=== PATIENT | male | born 1960 | race Caucasian/White ===

== ENCOUNTER → 2019-05-21 12:55 | Outpatient (BNVA) | payer SELFPAY | PROVIDERS: Family Provider Physician Assistant Medical; PCP Physician Assistant Medical; Visit Provider Specialist | DX: F17.210 Nicotine dependence, cigarettes, uncomplicated (principal); F12.20 Cannabis dependence, uncomplicated; Z86.73 Personal history of transient ischemic attack (TIA), and cerebral infarction without residual deficits | CPT/HCPCS: 99214 ==

== ENCOUNTER → 2021-02-08 15:45 | Outpatient (BNVA) | payer OTHER, SELFPAY | PROVIDERS: Family Provider Physician Assistant Medical; PCP Physician Assistant Medical; Visit Provider Nurse Practitioner | DX: Z20.822 Contact with and (suspected) exposure to COVID-19 (principal) | CPT/HCPCS: 87635 ==

== ENCOUNTER → 2022-06-01 14:07 | Outpatient (BNVA) | payer MEDICAID, SELFPAY | PROVIDERS: Family Provider Physician Assistant Medical; PCP Physician Assistant Medical; Visit Provider Podiatrist Foot & Ankle Surgery | DX: I73.9 Peripheral vascular disease, unspecified (principal); B35.1 Tinea unguium; Z87.39 Personal history of other diseases of the musculoskeletal system and connective tissue | CPT/HCPCS: 11721; 73630; 99204 ==

== ENCOUNTER 2022-11-22 13:27 | Oncology outpatient (recurring) (ONCR) | payer MEDICARE, MEDICAID, SELFPAY ==
[2022-11-22 15:10] LABS: Reticulocyte % 1.3 % (0.5-2.0)
[2022-11-22 15:20] VITALS: BP 154/100; PULSE 73; RESP 18; TEMP 36.4; O2SAT 96
[2022-11-22 15:26] LABS: Ferritin 63 ng/mL (30-400); Iron 105 ug/dL (59-158)
[2022-11-25 14:24] LABS: Erythropoietin 3.4 mIU/mL (2.6-18.5)
== END 2022-11-22 23:59 | disposition home or self-care (01) ==
PROVIDERS: Internal Medicine Medical Oncology; PCP Physician Assistant Medical; Visit Provider Internal Medicine Medical Oncology
DX: D75.1 Secondary polycythemia (principal)
CPT/HCPCS: 82668; 82728; 83540; 85045; 99204

== ENCOUNTER 2022-12-20 12:00 | Oncology outpatient (recurring) (ONCR) | payer MEDICARE, SELFPAY ==
[2022-11-29 11:50] VITALS: BP 122/78; PULSE 88; RESP 18; TEMP 36.4; O2SAT 98
[2022-11-29 12:25] VITALS: BP 163/83; PULSE 83; RESP 18; TEMP 35.9; O2SAT 97
[2022-12-06 13:14] VITALS: BP 134/84; PULSE 72; RESP 18; TEMP 37; O2SAT 96
[2022-12-06 13:25] LABS: Basophils # 0.1 10^3/uL (0.0-0.1); Basophils % 0.7 %; Eosinophils % 0.5 %; Hematocrit 57.1 % (42.0-52.0); Hemoglobin 19.5 g/dL (11.7-16.6); Lymphocytes # 1.8 10^3/uL (0.8-4.8); Mean Corpuscular HGB Conc 34.2 g/dL (30.0-36.0); Mean Corpuscular Hemoglobin 33.2 pg (28.0-34.0); Mean Corpuscular Volume 97.3 fl (80-94); Mean Platelet Volume 8.5 fL (7.4-10.4); Monocytes # 0.7 10^3/uL (0.2-0.9); Monocytes % 8.1 %; Neutrophils # 6.23 10^3/uL (1.8-7.7); Neutrophils % 70.5 %; Nucleated Red Blood Cells % 0 %; Platelet Count 244 10^3/cmm (130-400); Red Blood Count 5.87 10^6/uL (4.1-5.3); Red Cell Distribution Width 13.2 % (12.1-15.1); White Blood Count 8.8 10^3/uL (4.0-10.0)
[2022-12-06 13:45] VITALS: BP 133/88; PULSE 86; RESP 18; TEMP 36.4; O2SAT 99
[2022-12-13 13:03] VITALS: BP 176/84; PULSE 82; RESP 18; TEMP 36.9; O2SAT 96
[2022-12-13 13:16] LABS: Basophils # 0.1 10^3/uL (0.0-0.1); Basophils % 0.7 %; Eosinophils # 0.1 10^3/uL (0.0-0.8); Eosinophils % 0.8 %; Hematocrit 54.7 % (42.0-52.0); Hemoglobin 18.4 g/dL (11.7-16.6); Lymphocytes # 2.4 10^3/uL (0.8-4.8); Lymphocytes % 32.7 %; Mean Corpuscular HGB Conc 33.6 g/dL (30.0-36.0); Mean Corpuscular Hemoglobin 32.2 pg (28.0-34.0); Mean Corpuscular Volume 95.8 fl (80-94); Mean Platelet Volume 8.1 fL (7.4-10.4); Monocytes # 0.6 10^3/uL (0.2-0.9); Monocytes % 8.3 %; Neutrophils # 4.26 10^3/uL (1.8-7.7); Neutrophils % 57.2 %; Nucleated Red Blood Cells % 0 %; Platelet Count 298 10^3/cmm (130-400); Red Blood Count 5.71 10^6/uL (4.1-5.3); Red Cell Distribution Width 13.2 % (12.1-15.1); White Blood Count 7.4 10^3/uL (4.0-10.0)
[2022-12-13 15:30] VITALS: BP 121/65; PULSE 74; RESP 18; TEMP 36.6; O2SAT 98
[2022-12-20 12:47] VITALS: BP 137/78; PULSE 73; RESP 18; TEMP 36.6; O2SAT 96
[2022-12-20 13:05] LABS: Basophils # 0.1 10^3/uL (0.0-0.1); Basophils % 1.3 %; Eosinophils # 0.1 10^3/uL (0.0-0.8); Eosinophils % 1.5 %; Hematocrit 49.2 % (37-53); Lymphocytes % 36.3 %; Mean Corpuscular HGB Conc 33.3 g/dL (30-55); Mean Corpuscular Volume 96.1 fl (82-101); Mean Platelet Volume 8.4 fL (7.4-10.4); Monocytes # 0.6 10^3/uL (0.2-0.9); Monocytes % 10.7 %; Neutrophils # 2.69 10^3/uL (1.8-7.7); Neutrophils % 49.8 %; Nucleated Red Blood Cells % 0 %; Platelet Count 279 10^3/cmm (157-399); Red Blood Count 5.12 10^6/uL (3.85-5.65); Red Cell Distribution Width 13.1 % (12.1-15.1)
[2022-12-20 14:40] VITALS: BP 121/74; PULSE 94; RESP 18; TEMP 36.1; O2SAT 97
== END 2022-12-29 23:59 | disposition home or self-care (01) ==
PROVIDERS: Internal Medicine Medical Oncology; PCP Registered Nurse; Visit Provider Internal Medicine Medical Oncology
DX: D75.1 Secondary polycythemia (principal); R53.83 Other fatigue; R06.02 Shortness of breath; R40.0 Somnolence; F17.210 Nicotine dependence, cigarettes, uncomplicated
CPT/HCPCS: 36415; 85025; 99195; 99213

== ENCOUNTER → 2023-01-17 15:17 | Outpatient (BNVA) | payer MEDICARE, SELFPAY | PROVIDERS: PCP Registered Nurse; Visit Provider Dermatology | DX: L57.0 Actinic keratosis (principal); L81.4 Other melanin hyperpigmentation; L57.8 Other skin changes due to chronic exposure to nonionizing radiation; L82.1 Other seborrheic keratosis; L82.0 Inflamed seborrheic keratosis; L53.8 Other specified erythematous conditions; D48.5 Neoplasm of uncertain behavior of skin | CPT/HCPCS: 11102; 17000; 17110; 99203 ==

== ENCOUNTER 2023-01-18 11:55 | Oncology outpatient (recurring) (ONCR) | payer MEDICARE, SELFPAY ==
[2023-01-18 12:27] VITALS: BP 149/89; PULSE 72; RESP 16; TEMP 37; O2SAT 95
[2023-01-18 12:39] LABS: Basophils # 0.1 10^3/uL (0.0-0.1); Basophils % 1.1 %; Eosinophils # 0.1 10^3/uL (0.0-0.8); Eosinophils % 1.8 %; Hematocrit 51.5 % (37-53); Lymphocytes # 2.4 10^3/uL (0.8-4.8); Lymphocytes % 43.6 %; Mean Corpuscular HGB Conc 32.2 g/dL (30-55); Mean Corpuscular Hemoglobin 29.7 pg (27-33); Mean Corpuscular Volume 92.3 fl (82-101); Mean Platelet Volume 8.3 fL (7.4-10.4); Monocytes # 0.7 10^3/uL (0.2-0.9); Monocytes % 11.6 %; Neutrophils # 2.34 10^3/uL (1.8-7.7); Neutrophils % 41.7 %; Nucleated Red Blood Cells % 0 %; Platelet Count 310 10^3/cmm (157-399); Red Blood Count 5.58 10^6/uL (3.85-5.65); Red Cell Distribution Width 12.8 % (12.1-15.1)
== END 2023-01-28 23:59 | disposition home or self-care (01) ==
PROVIDERS: Internal Medicine Medical Oncology; PCP Registered Nurse; Visit Provider Internal Medicine Medical Oncology
DX: D75.1 Secondary polycythemia (principal); R09.02 Hypoxemia
CPT/HCPCS: 36415; 85025; 99213

== ENCOUNTER → 2023-02-06 08:29 | Outpatient (BNVA) | payer MEDICARE, SELFPAY | PROVIDERS: PCP Registered Nurse; Visit Provider Dermatology | DX: C44.629 Squamous cell carcinoma of skin of left upper limb, including shoulder (principal) | CPT/HCPCS: 11603; 12032; 13132; 17311 ==

== ENCOUNTER 2024-06-02 20:52 | Observation (INO) | payer MEDICARE, SELFPAY ==
[2024-06-02] VITALS (10 sets, daily range): BP systolic 129–154; BP diastolic 68–81; PULSE 58–72; RESP 16–30; TEMP 36.7; O2SAT 93–95; BMI 18.6
--- NOTE | 2024-06-02 21:05 | XRR_ITS ---
PROCEDURE INFORMATION: Exam: XR Chest Exam date and time: 06/02/2024 9:34 PM Age: 63 years old Clinical indication: Possible CVA. ; Additional info: Weakness TECHNIQUE: Imaging protocol: Radiologic exam of the chest. Views: 1 view. COMPARISON: CT angio headneck* [id number] 06/02/2024 9:15 PM FINDINGS: Lungs: Unremarkable. No consolidation. Pleural spaces: Unremarkable. No pleural effusion. No pneumothorax. Heart/Mediastinum: Unremarkable. No cardiomegaly. Bones/joints: Unremarkable. XR/XR chest 1V portable [id number] IMPRESSION: No acute findings.
--- NOTE | 2024-06-02 21:05 | CTR_ITS ---
PROCEDURE INFORMATION: Exam: CTA Head With Contrast, Arteriography Exam date and time: 06/02/2024 9:15 PM Age: 63 years old Clinical indication: Stroke-like symptoms; Lt upper extremity weakness; Additional info: Left ue weakness TECHNIQUE: Imaging protocol: Computed tomographic angiography of the head with contrast. Exam focused on the arteries. 3D rendering (Not supervised by radiologist): MIP and/or 3D reconstructed images were created by the technologist. Radiation optimization: All CT scans at this facility use at least one of these dose optimization techniques: automated exposure control; mA and/or kV adjustment per patient size (includes targeted exams where dose is matched to clinical indication); or iterative reconstruction. Contrast material: OMNI 350; Contrast volume: 100 ml; Contrast route: INTRAVENOUS (IV); COMPARISON: CT head thrombolytic [id number] 06/02/2024 9:11 PM RADIATION DOSE METRICS: Total DLP (mGy-cm): 394.06 FINDINGS: ANTERIOR CIRCULATION: Right internal carotid artery: Intracranial segment is patent with no significant stenosis. No aneurysm. Right middle cerebral artery: Chronically occluded M1 segment of right middle cerebral artery with revascularization from collateralized vasculature. Right anterior cerebral artery: No occlusion or significant stenosis. No aneurysm. Left internal carotid artery: Intracranial segment is patent with no significant stenosis. No aneurysm. Left middle cerebral artery: No occlusion or significant stenosis. No aneurysm. Left anterior cerebral artery: No occlusion or significant stenosis. No aneurysm. POSTERIOR CIRCULATION: Right vertebral artery: No occlusion or significant stenosis. No aneurysm. 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 Basilar artery: No occlusion or significant stenosis. No aneurysm. Right posterior cerebral artery: No occlusion or significant stenosis. No aneurysm. Left posterior cerebral artery: No occlusion or significant stenosis. No aneurysm. Brain: No definite mass, mass effect, or midline shift. Cerebral ventricles: No ventriculomegaly. Bones/joints: Unremarkable. No acute fracture. Soft tissues: Unremarkable. PROCEDURE INFORMATION: Exam: CTA Neck With Contrast Exam date and time: 06/02/2024 9:15 PM Age: 63 years old Clinical indication: Stroke-like symptoms; Lt upper extremity weakness; Additional info: Left ue weakness TECHNIQUE: Imaging protocol: Computed tomographic angiography of the neck with contrast. Exam focused on the cervical segments of the vasculature. 3D rendering (Not supervised by radiologist): MIP and/or 3D reconstructed images were created by the technologist. Radiation optimization: All CT scans at this facility use at least one of these dose optimization techniques: automated exposure control; mA and/or kV adjustment per patient size (includes targeted exams where dose is matched to clinical indication); or iterative reconstruction. Contrast material: OMNI 350; Contrast volume: 100 ml; Contrast route: INTRAVENOUS (IV); COMPARISON: MR angio neck w con* [id number] 01/23/2019 10:23 AM RADIATION DOSE METRICS: Total DLP (mGy-cm): 394.06 FINDINGS: Right common carotid artery: No stenosis. No dissection or occlusion. Right internal carotid artery: Mild stenosis at the origin. No dissection or occlusion. Right external carotid artery: No occlusion or stenosis of the origin. Left common carotid artery: No stenosis. No dissection or occlusion. Left internal carotid artery: Mild stenosis at the origin. No dissection or occlusion. Left external carotid artery: No occlusion or stenosis of the origin. Right vertebral artery: No stenosis. No dissection or occlusion. Left vertebral artery: Chronically occluded distal aspect of the left vertebral artery in the neck with collateralized vasculature. Soft tissues: Normal. No significant soft tissue swelling. Bones/joints: No acute fracture. CT/CT angio headneck* [id number] IMPRESSION: 1. No acute large vessel occlusion. 2. Chronically occluded M1 segment of the right MCA and distal portion of the left vertebral artery with collateralized vasculature. IMPRESSION: 1. No acute large vessel occlusion. 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 2. Mild stenosis at the origins of the internal carotid arteries. REFERENCES: NASCET CRITERIA. The degree of stenosis in the cervical segment of the internal carotid artery is based on NASCET criteria. Normal is no stenosis. Mild is less than 50% stenosis. Moderate is 50-69% stenosis. Severe is 70% to 99% stenosis. Total occlusion is no detectable patent lumen.
--- NOTE | 2024-06-02 21:06 | CTR_ITS ---
PROCEDURE INFORMATION: Exam: CT Head Without Contrast Exam date and time: 06/02/2024 9:11 PM Age: 63 years old Clinical indication: Stroke-like symptoms; Lt upper extremity weakness; Additional info: Sudden onset of lue weakness. Lkwt of 1930 hours. History of prior RT sided CVA. TECHNIQUE: Imaging protocol: Computed tomography of the head without contrast. Radiation optimization: All CT scans at this facility use at least one of these dose optimization techniques: automated exposure control; mA and/or kV adjustment per patient size (includes targeted exams where dose is matched to clinical indication); or iterative reconstruction. Other technique: STROKE PROTOCOL was implemented. COMPARISON: MR angio head wo con [id number] 01/23/2019 9:29 AM RADIATION DOSE METRICS: Total DLP (mGy-cm): 1014.56 FINDINGS: Brain: No hemorrhage. No edema. Broad region of encephalomalacia in the right cerebral hemisphere. Focal area of encephalomalacia from old infarct in the left parietal lobe. Moderate diffuse cerebral atrophy. No mass effect. Cerebral ventricles: No ventriculomegaly. Paranasal sinuses: Visualized sinuses are unremarkable. No fluid levels. Mastoid air cells: Visualized mastoid air cells are well aerated. Bones: Unremarkable. No acute fracture. Soft tissues: Unremarkable. CT/CT head thrombolytic [id number] IMPRESSION: No acute intracranial abnormality. ASSESSMENT: ASPECTS (Tracie Stroke Program Early CT Score) is 10.
[2024-06-02 21:19] LABS: Basophils % 0.4 %; Eosinophils % 0.4 %; Hematocrit 45.3 % (37-53); Lymphocytes % 44.7 %; Mean Corpuscular HGB Conc 34.4 g/dL (30-55); Mean Corpuscular Volume 92.8 fl (82-101); Mean Platelet Volume 9.4 fL (7.4-10.4); Monocytes # 0.9 10^3/uL (0.2-0.9); Monocytes % 13.8 %; Neutrophils # 2.69 10^3/uL (1.8-7.7); Neutrophils % 40.4 %; Nucleated Red Blood Cells % 0 %; Platelet Count 150 10^3/cmm (157-399); Red Blood Count 4.88 10^6/uL (3.85-5.65); Red Cell Distribution Width 12.8 % (12.1-15.1); White Blood Count 6.67 10^3/uL (3.29-11.43)
[2024-06-02] MEDS: iohexol 350 mg/mL 500 mL Btl (per mL) IV (21:24)
--- NOTE | 2024-06-02 21:25 | W.ED.WEAKNES ---
HPI - Weakness General: Chief complaint: Weakness Stated complaint: Possible Stroke Time Seen by Provider: 06/02/24 21:05 History of Present Illness: 63-year-old male gentleman with a history of 2 prior strokes. He is on Plavix for these. He has been ill with the flu this past few days, but otherwise has had no neurological complaints. At 7:30 PM this evening, he began to get weak in his left upper extremity more than his left lower extremity. He has a facial droop on the left side. These are his only symptoms. He has no new vision problems, although he does have vision problems from his previous stroke, no language problems, works speech problems. His extremities feel a bit numb on the left side upper and lower. He does not have a headache. He is not dizzy. [facility] PFSH: Medical History Hypertension CVA (cerebrovascular accident) History of sciatica Polycythemia secondary to hypoxia History of gout Family History Father Cancer Lung cancer Other Diabetes Hyperlipidemia Hypertension Stroke Denies family history of CAD (coronary artery disease) Clotting disorder Dementia Psychiatric illness Chronic kidney disease (CKD) Suicide Anesthesia complication Bleeding disorder Lung disease Social History Smoking and tobacco/nicotine status: current every day tobacco/nicotine user cigarettes Packs smoked per day: 0.75 Years cigarettes smoked: 40 Alcohol intake: current Alcohol intake frequency: 0-2 Drinks per Day Alcohol type: beer Substance/Drug Use: current Substance/Drug use frequency: daily Physical Exam Const: COMMON NORMALS: no acute distress GENERAL APPEARANCE: cooperative; not ill appearing and not frail appearing HENMT: COMMON NORMALS: normocephalic, atraumatic and Normal external nose present HEAD & SCALP: normocephalic and atraumatic FACE & SINUS: normal facial exam and face symmetric NOSE: Normal external nose present Eye: COMMON NORMALS: Equal, round and reactive pupils present and EOMs intact bilaterally PUPIL: Yes Equal, round and reactive pupils present Neck/C-Spine: GENERAL: Yes trachea midline Chest: CHEST: Yes Symmetrical chest wall rise Resp: COMMON NORMALS: normal respiratory effort, No retractions, No use of accessory muscles and clear to auscultation bilaterally AUSCULTATION: clear to auscultation bilaterally Cardio: COMMON NORMALS: regular rate and regular rhythm RATE: regular rate RHYTHM: regular rhythm GI: COMMON NORMALS: Normal to inspection, nondistended, normoactive bowel sounds present Extremity: COMMON NORMALS: no pedal edema Neuro: MIRNA COMA SCALE: document GCS findings Mirna coma scale eye opening: Spontaneous [place] coma scale verbal response: Orientated [place] coma scale motor response: Obey commands Mirna coma scale total score: 15 SENSORY EXAM: Yes extremities (intact) Psych: COMMON NORMALS: speech normal SPEECH: Yes normal speech Skin: COMMON NORMALS: no rashes or lesions noted GENERAL SKIN EXAM: no rashes or lesions noted Course Vital Signs: Vital signs: Vital Signs Temperature 98.1 F 06/02/24 20:53 Pulse Rate 64 06/02/24 23:31 Respiratory Rate 22 H 06/02/24 23:31 Blood Pressure 129/68 06/02/24 23:31 Pulse Oximetry 95 06/02/24 20:53 Oxygen Delivery Me thod Room Air 06/02/24 20:53 MDM - Weakness Medical Decision Making This patient has an NIH scale of 4. His last stroke was in 2017 he tells me. His platelet count is 150. No recent trauma or surgery. He takes Plavix but no anticoagulants. He is within the treatment window for thrombolytics. Obviously CT head was negative for hemorrhage. CTA showed a chronically occluded MCA on the right, and a left vertebral artery both with collateralized vasculature according to radiology. I consulted neurology at [facility] in [place], who is covering our stroke team. They agree the patient is a good candidate for thrombolytics. He was given TNKase. No worsening of symptoms. His vitals are remained stable. Chest x-ray is negative. He will go to the ICU. Hospitalist is aware and will see the patient. Lab Data 06/02/24 21:10 06/02/24 21:10 Radiology Impressions Chest X-Ray 06/02/24 21:05 IMPRESSION: No acute findings. Head/Neck CTA 06/02/24 21:05 IMPRESSION: 1. No acute large vessel occlusion. 2. Chronically occluded M1 segment of the right MCA and distal portion of the left vertebral artery with collateralized vasculature. IMPRESSION: 1. No acute large vessel occlusion. 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 2. Mild stenosis at the origins of the internal carotid arteries. REFERENCES: NASCET CRITERIA. The degree of stenosis in the cervical segment of the internal carotid artery is based on NASCET criteria. Normal is no stenosis. Mild is less than 50% stenosis. Moderate is 50-69% stenosis. Severe is 70% to 99% stenosis. Total occlusion is no detectable patent lumen. ADDENDUM: 06/02/242150 Findings were discussed with YSABEL MALONEY at 06/02/2024 9:49 PM HANDLE LATHE OPERATOR. Head CT 06/02/24 21:06 IMPRESSION: No acute intracranial abnormality. ASSESSMENT: ASPECTS (Tracie Stroke Program Early CT Score) is 10. ADDENDUM: 06/02/242132 Findings were discussed with YSABEL MALONEY at 06/02/2024 9:31 PM HANDLE LATHE OPERATOR. Laboratory Results WBC 6.67 10^3/uL (3.29-11.43) 06/02/24 21:10 RBC 4.88 10^6/uL (3.85-5.65) 06/02/24 21:10 Hgb 15.60 g/dL (11.27-16.99) 06/02/24 21:10 Hct 45.3 % (37-53) 06/02/24 21:10 MCV 92.8 fl (82-101) 06/02/24 21:10 MCH 32.0 pg (27-33) 06/02/24 21:10 MCHC 34.4 g/dL (30-55) 06/02/24 21:10 RDW 12.8 % (12.1-15.1) 06/02/24 21:10 Plt Count 150 10^3/cmm (157-399) L 06/02/24 21:10 MPV 9.4 fL (7.4-10.4) 06/02/24 21:10 Neut % (Auto) 40.4 % 06/02/24 21:10 Lymph % (Auto) 44.7 % 06/02/24 21:10 Woodruff % (Auto) 13.8 % 06/02/24 21:10 Eos % (Auto) 0.4 % 06/02/24 21:10 Baso % (Auto) 0.4 % 06/02/24 21:10 Neut # (Auto) 2.69 10^3/uL (1.8-7.7) 06/02/24 21:10 Lymph # (Auto) 3.0 10^3/uL (0.8-4.8) 06/02/24 21:10 Woodruff # (Auto) 0.9 10^3/uL (0.2-0.9) 06/02/24 21:10 Eos # (Auto) 0.0 10^3/uL (0.0-0.8) 06/02/24 21:10 Baso # (Auto) 0.0 10^3/uL (0.0-0.1) 06/02/24 21:10 Nucleated RBC % (auto) 0 % 06/02/24 21:10 Nucleated RBCs # 0.0 /100WBC 06/02/24 21:10 PT 11.80 SECONDS (12.1-14.9) L 06/02/24 21:10 INR 0.81 (0.8-1.2) 06/02/24 21:10 APTT 28.6 SECONDS (23.9-36.7) 06/02/24 21:10 Sodium 135 mmol/L (136-145) L 06/02/24 21:10 Potassium 4.0 mmol/L (3.5-5.1) 06/02/24 21:10 Chloride 97 mmol/L (98-107) L 06/02/24 21:10 Carbon Dioxide 27 mmol/L (22-29) 06/02/24 21:10 Anion Gap 15.0 (5-19) 06/02/24 21:10 BUN 8 mg/dL (8-23) 06/02/24 21:10 Creatinine 0.7 mg/dL (0.7-1.2) 06/02/24 21:10 GFR Calculation 114.3 mL/min (90-130) 06/02/24 21:10 Glucose 89 mg/dL (65-115) 06/02/24 21:10 Estimat Average Glucose 105 06/02/24 21:10 Hemoglobin A1c 5.3 % (4.0-6.0) 06/02/24 21:10 Calculated Osmolality 278 mOsm/kg (285-295) L 06/02/24 21:10 Calcium 9.0 mg/dL (8.5-10.5) 06/02/24 21:10 Total Bilirubin 0.2 mg/dL (0.15-1.2) 06/02/24 21:10 AST 36 U/L (0-40) 06/02/24 21:10 ALT 25 U/L (0-41) 06/02/24 21:10 Alkaline Phosphatase 48 U/L (40-130) 06/02/24 21:10 Total Protein 6.2 g/dL (6.6-8.7) L 06/02/24 21:10 Albumin 3.8 g/dL (3.5-5.2) 06/02/24 21:10 Globulin 2.4 g/dL (1.3-4.6) 06/02/24 21:10 Vitamin B12 539 pg/mL (232-1245) 06/02/24 21:10 Urine Color Yellow (Yellow) 06/02/24 22:10 Urine Appearance Clear (CLEAR) 06/02/24 22:10 Urine pH 6.5 (5-7) 06/02/24 22:10 Ur Specific Donal[place] 1.011 (1.005-1.030) 06/02/24 22:10 Urine Protein Negative (Negative) 06/02/24 22:10 Urine Glucose (UA) Negative (Normal) 06/02/24 22:10 Urine Ketones Negative (Negative) 06/02/24 22:10 Urine Blood Negative (Negative) 06/02/24 22:10 Urine Nitrate Negative (Negative) 06/02/24 22:10 Urine Bilirubin Negative (Negative) 06/02/24 22:10 Urine Urobilinogen 0.2 mg/dL (Negative) 06/02/24 22:10 Ur Leukocyte Esterase Negative (Negative) 06/02/24 22:10 Urine RBC 0-2 /hpf (0-2) 06/02/24 22:10 Urine WBC 0-5 /hpf (0-5) 06/02/24 22:10 Ur Squamous Epith Cells 0-5 /hpf (0-5) 06/02/24 22:10 Amorphous Sediment Not Reportable 06/02/24 22:10 Urine Bacteria None seen /hpf (NONE) 06/02/24 22:10 Hyaline Casts 0-4 /lpf H 06/02/24 22:10 Urine Opiates Screen Negative ng/mL (Negative) 06/02/24 22:10 Ur Barbiturates Screen Negative ng/mL (Negative) 06/02/24 22:10 Ur Phencyclidine Scrn Negative ng/mL (Negative) 06/02/24 22:10 Ur Amphetamines Screen Negative ng/mL (Negative) 06/02/24 22:10 U Benzodiazepines Scrn Negative ng/mL (Negative) 06/02/24 22:10 Urine Cocaine Screen Negative ng/mL (Negative) 06/02/24 22:10 U Marijuana (THC) Screen Negative ng/mL (Negative) 06/02/24 22:10 Ethyl Alcohol 40 mg/dL (0-10) H 06/02/24 21:10 All radiology interpretation(s) finalized by discharge Critical Care Time Critical Care Time: Critical Care Time: Yes Total Critical Care Time: 40 Attestation: This case had a high probability of a clinically significant, sudden, or life threatening deterioration of this patient's condition which required my full and direct attention, intervention and personal management. Time is independent of any procedures performed Discharge Plan Discharge Patient Disposition: Placed in Observation Clinical Impression: Acute CVA (cerebrovascular accident) Condition: Stable Prescriptions: No Action losartan 100 mg tablet 100 mg PO QDAY amlodipine 10 mg tablet 10 mg PO QDAY clopidogrel [Plavix] 75 mg tablet 75 mg PO QDAY Qty: 30 5RF tizanidine 2 mg capsule See Rx Instructions PO Q8H PRN Rx Instructions: dosage unknown orally every 8 hours PRN; trazodone 50 mg tablet 25 mg PO BEDTIME allopurinol 100 mg tablet 100 mg PO DAILY lisinopril 5 mg tablet 5 mg PO DAILY Qty: 30 0RF indomethacin 25 mg capsule 25 mg PO BID Qty: 20 0RF Rx Instructions: administer with food or milk Referrals: Maria Teresa Banks [Primary Care Provider] - Coding Level of Care Code ED Forensic Anthropologist for g Fwd Related Data Home Medications Medication Instructions Recorded Confirmed amlodipine 10 mg tablet 10 mg PO QDAY 05/21/19 01/18/23 losartan 100 mg tablet 100 mg PO QDAY 05/21/19 01/18/23 tizanidine 2 mg capsule See Rx Instructions PO Q8H PRN 12/20/22 01/18/23 allopurinol 100 mg tablet 100 mg PO DAILY 01/18/23 01/18/23 trazodone 50 mg tablet 25 mg PO BEDTIME 01/18/23 01/18/23 Previous Rx's Medication Instructions Recorded lisinopril 5 mg tablet 5 mg PO DAILY #30 tabs 05/15/19 clopidogrel 75 mg tablet (Plavix) 75 mg PO QDAY #30 tabs 05/21/19 indomethacin 25 mg capsule 25 mg PO BID #20 caps 06/28/22 Allergies Allergy/AdvReac Type Severity Reaction Status Date / Time Sulfa (Sulfonamide Allergy Mild hives Verified 06/02/24 21:00 Antibiotics) NIH stroke score NIHSS Level Of Consciousness - 1a: 0 Level Of Consciousness Questions - 1b: Both Correct Level Of Consciousness Commands - 1c: Both Correct Best Gaze - 2: Normal Visual Cooper - 3: No Visual Loss Facial Palsy - 4: Minor Paralysis Motor Arm Right - 5: No Drift Motor Arm Left - 5: Drift Motor Leg Right - 6: No Drift Motor Leg Left - 6: Drift Limb Ataxia - 7: Present In One Limb Sensory - 8: Normal Best Language - 9: No Aphasia Dysarthia - 10: Normal Extinction And Inattention - 11: 0 Score Total Score: 4
[2024-06-02 21:30] LABS: INR 0.81 (0.8-1.2)
[2024-06-02 21:31] LABS: Partial Thromboplastin Time 28.6 SECONDS (23.9-36.7)
[2024-06-02 21:34] LABS: Alanine Aminotransferase 25 U/L (0-41); Albumin Level 3.8 g/dL (3.5-5.2); Alcohol Level 40 mg/dL (0-10); Alkaline Phosphatase 48 U/L (40-130); Aspartate Amino Transferase 36 U/L (0-40); Blood Urea Nitrogen 8 mg/dL (8-23); Carbon Dioxide 27 mmol/L (22-29); Chloride 97 mmol/L (98-107); Creatinine Clr Calc Pharmacy 88.4511; Globulin 2.4 g/dL (1.3-4.6); Glomerular Filtration Rate 114.3 mL/min (90-130); Glucose 89 mg/dL (65-115); Osmolality Calculated 278 mOsm/kg (285-295); Slide Review Slide Review Perform; Sodium 135 mmol/L (136-145); Total Bilirubin 0.2 mg/dL (0.15-1.2); Total Protein 6.2 g/dL (6.6-8.7)
[2024-06-02] MEDS: tenecteplase 50mg Kit (STROKE) 16 MG IVP (21:54)
--- NOTE | 2024-06-02 22:07 | ECG_ITS ---
[facility]24[facility]02 Pat Name: Yobany Childs Department: Room: Gender: Male Interface Designer: : [id number] Requested By: Clarence Cuevas Order Number: [id number] Michelet MD: Gianfranco Blankenship M.D. Measurements Intervals Masterson Rate: 64 P: 85 ID: [id number] QRS: 87 QRSD: 85 T: 87 QT: 394 QTc: 409 Interpretive Statements SINUS RHYTHM No previous ECG available for comparison Electronically Signed On 06-06-2024 22:10:00 [employer] by Gianfranco Blankenship M.D. [email or web address] [id number]
--- NOTE | 2024-06-02 23:06 | P.HP_ITS ---
Providers/Chief Complaint 2 Primary Care Provider: Maria Teresa Banks Chief Complaint: Possible Stroke History of Present Illness Yobany Childs is a 63 year old male with history of previous CVA, in 2017 was his last CVA, active smoker, hypertension, dyslipidemia, presented with chief complaint of slurred speech and left-sided arm and leg weakness started at 7:30 PM. Code stroke was called, on arrival patient was evaluated by teleneurologist from [facility]. Patient was given TNKase, patient started experiencing improvement of left arm and leg weakness. At the time of my evaluation his NIH score is 0. He is awake and alert with stable hemodynamics. Patient is stating that he was prescribed oxygen in the past however secondary to insurance lapse he has lost access to oxygen. He smokes 1 pack/day. Compliant with his medications. Patient is stating that he just had supper and he was smoking when he start experiencing slurring of speech and left-sided weakness. He is a retired michael. No chest pain nausea vomiting diarrhea or recent fever. Patient is stating that he is recovering from influenza A. Review of Systems 2 Const: Denies: fever(s) Eyes: Denies: change in vision ENMT: Denies: throat pain Card: Denies: chest pain Resp: Denies: dyspnea GI: Denies: abdominal pain : Denies: flank pain Skin/Breast: Denies: rash Neuro: Reports: headache(s), weakness in extremities and Slurred speech present Medications/Allergies Home Medications Medication Instructions Recorded Confirmed Last Taken Type lisinopril 5 mg tablet 5 mg PO DAILY #30 tabs 05/15/19 01/18/23 Unknown Rx amlodipine 10 mg tablet 10 mg PO QDAY 05/21/19 01/18/23 Unknown History clopidogrel 75 mg tablet (Plavix) 75 mg PO QDAY #30 tabs 05/21/19 01/18/23 Unknown Rx losartan 100 mg tablet 100 mg PO QDAY 05/21/19 01/18/23 Unknown History indomethacin 25 mg capsule 25 mg PO BID #20 caps 06/28/22 01/18/23 Unknown Rx tizanidine 2 mg capsule See Rx Instructions PO Q8H PRN 12/20/22 01/18/23 Unknown History allopurinol 100 mg tablet 100 mg PO DAILY 01/18/23 01/18/23 Unknown History trazodone 50 mg tablet 25 mg PO BEDTIME 01/18/23 01/18/23 Unknown History Allergies Allergy/AdvReac Type Severity Reaction Status Date / Time Sulfa (Sulfonamide Allergy Mild hives Verified 06/02/24 21:00 Antibiotics) PFSH Acute 2 PFSH: Medical History Hypertension CVA (cerebrovascular accident) History of sciatica Polycythemia secondary to hypoxia History of gout Family History Father Cancer Lung cancer Other Diabetes Hyperlipidemia Hypertension Stroke Denies family history of CAD (coronary artery disease) Clotting disorder Dementia Psychiatric illness Chronic kidney disease (CKD) Suicide Anesthesia complication Bleeding disorder Lung disease Social History Smoking and tobacco/nicotine status: current every day tobacco/nicotine user cigarettes Packs smoked per day: 0.75 Years cigarettes smoked: 40 Alcohol intake: current Alcohol intake frequency: 0-2 Drinks per Day Alcohol type: beer Substance/Drug Use: current Substance/Drug use frequency: daily Vitals/I&O/Wt Last Vital Signs Temp 98.1 F 06/02/24 20:53 Pulse 72 06/02/24 20:53 Resp 16 06/02/24 20:53 BP 154/77 06/02/24 20:53 Pulse Ox 95 06/02/24 20:53 O2 Del Method Room Air 06/02/24 20:53 06/02/24 06/02/24 06/03/24 14:59 22:59 06:59 Intake Total 0 / 0 Balance 0 / 0 Weight last 48 hrs Weight 62.777 kg Weight 57.153 kg Physical Exam 2 Narrative: NIH 0 at the time of my evaluation S1, S2 No active focal deficit Awake and alert AOx4 No sign of meningitis Pleasant and cooperative Currently room air sats are 94% Hemodynamically stable Awake and alert Euvolemic Family at the bedside S1, S2 no murmur appreciated Data 06/02/24 21:10 06/02/24 21:10 A&P Assessment and plan (1) Smoking greater than 40 pack years: (2) Acute CVA (cerebrovascular accident): (3) Thrombolytic therapy administered within 2 hours of onset of symptoms: Plan Acute CVA Status post TNKase Monitor in ICU Start antibiotic therapy 24 hours after TNKase Requested echo with bubble study PT OT ST Considering NIH score 0 I am confident patient will be able to go home within 24 to 48 hours, for now monitor closely after TNKase in ICU At this point our goal is to keep his blood pressure below 180/105 mmHg, keep him afebrile, no need of antiepileptics at this point, no blood work for next 24 hours, no need of Hemphill catheter at this time Patient does not have any slurring of speech, no significant dysphagia during my clinical exam, Will check B12, TSH COPD without acute exacerbation Patient was on oxygen in the past however for Lasix treatment secondary to insurance lapse he has not use oxygen currently saturating well 94% room air Patient may need oxygen at the time of discharge after new home oxygen valuation Active smoker: Will use nicotine patch 21 mg, he smokes 1 pack/day Hypertension: Permissive hypertension, however keep blood pressure at goal as mentioned above, will start lisinopril tomorrow 5 mg which she normally takes at home Full code Cardiac DuoNeb on as-needed basis DVT prophylaxis: SCDs Attestations 2 Medical Necessity Statement*: Anticipate discharge after 48 hours Diagnoses Smoking greater than 40 pack years F17.210 Acute CVA (cerebrovascular accident) I63.9 Thrombolytic therapy administered within 2 hours of onset of symptoms
[2024-06-02 23:33] LABS: Estmated Average Glucose 105; Hemoglobin A1C 5.3 % (4.0-6.0)
[2024-06-02 23:42] LABS: Bilirubin Urine Negative (Negative); Blood Urine Negative (Negative); Glucose Urine UA Negative (Normal); Ketones Urine Negative (Negative); Leukocyte Esterase Urine Negative (Negative); Nitrate Urine Negative (Negative); Protein Urine Negative (Negative); Specific Gravity, Urine 1.011 (1.005-1.030); Urine Appearance Clear (CLEAR); Urine Color Yellow (Yellow); Urobilinogen Urine 0.2 mg/dL (Negative); pH Urine 6.5 (5-7)
[2024-06-02 23:47] LABS: Add Urine Microscopic? YES; Bacteria Urine None Seen /hpf; Hyaline Casts Urine 0-4 /lpf; RBC Urine 0-2 /hpf (0-2); Squamous Epithelial Cell Urine 0-5 /hpf (0-5); WBC Urine 0-5 /hpf (0-5)
[2024-06-02 23:49] LABS: Amphetamines Screen Urine Negative (Negative); Barbiturates Screen Urine Negative (Negative); Benzodiazepines Screen Urine Negative (Negative); Cocaine Screen Urine Negative (Negative); Opiate Screen Urine Negative (Negative); PCP Screen Urine Negative (Negative); THC Screen Urine Negative (Negative)
[2024-06-02 23:57] LABS: Vitamin B12 539 pg/mL (232-1245)
[2024-06-03] VITALS (41 sets, daily range): BP systolic 94–144; BP diastolic 56–91; PULSE 51–67; RESP 15–29; TEMP 37.1; O2SAT 90–98; BMI 17.7
--- NOTE | 2024-06-03 05:18 | PC.NURSE ---
Patient report called to Natasha DANIELS in ICU. Patient to go to room ICU 2 after shift change.
--- NOTE | 2024-06-03 07:53 | P.PN_ITS ---
Subjective 2 Subjective: Symptoms overall have significantly improved. Denies any recurrence. No complaints of pain or discomfort currently. She tells me his left arm started going numb and weak. Later on his leg as well. He himself did not particularly notice significant issues with his speech. Vitals/I&O/Wt Last Vital Signs Temp 98.1 F 06/02/24 20:53 Pulse 56 L 06/03/24 07:41 Resp 19 H 06/03/24 05:00 BP 106/56 06/03/24 07:41 Pulse Ox 98 06/03/24 07:41 O2 Del Method Room Air 06/03/24 05:30 06/02/24 06/03/24 06/03/24 22:59 06:59 14:59 Intake Total 0 / 0 Output Total 400 / 400 Balance 0 / 0 -400 / -400 Weight last 48 hrs Weight 62.777 kg Weight 57.153 kg Physical Exam 2 Const: COMMON NORMALS: patient oriented x3 and alert GENERAL APPEARANCE: c ooperative ORIENTATION/CONSCIOUSNESS: Yes awake HENMT: COMMON NORMALS: oropharynx normal Neck/C-Spine: COMMON NORMALS: no JVD Resp: COMMON NORMALS: normal respiratory effort and clear to auscultation bilaterally AUSCULTATION: clear to auscultation bilaterally Cardio: COMMON NORMALS: no JVD, regular rhythm, S1 normal heart sound present, S2 normal heart sound present and No murmurs present (Cardio) RHYTHM: regular rhythm HEART SOUNDS: S1 normal heart sound present and S2 normal heart sound present GI: COMMON NORMALS: Normal to inspection, nondistended, normoactive bowel sounds present, Soft to palpation and non-tender PALPATION: Yes Soft to palpation Extremity: COMMON NORMALS: no joint enlargement and no pedal edema Neuro: COMMON NORMALS: patient oriented x3 and moves all extremities S ENSORIUM/ORIENTATION: Yes alert OTHER: He is awake and alert, responding properly, no difficulties following directions. Facial droop, no dysarthria, without perceptible aphasia currently. No difficulty with horizontal tracking. Visual landin full to confrontation. No visual extinction. FNF intact. No drift bilateral upper extremities, minimal drift left lower extremity. Sensation intact. No sensory extinction. Skin: COMMON NORMALS: no rashes or lesions noted GENERAL SKIN EXAM: no rashes or lesions noted Data 06/02/24 21:10 06/02/24 21:10 A&P Assessment and plan (1) Smoking greater than 40 pack years: (2) Acute CVA (cerebrovascular accident): (3) Thrombolytic therapy administered within 2 hours of onset of symptoms: Plan Acute CVA Status post TNKase Continue ICU admission. Requested CT head worsening for hours to after TNK. Monitor for any bleeding. Discussed with him 24 hours after TNKase starting antiplatelets with aspirin, Plavix. Complete echocardiogram bubble study. Monitor on telemetry. Reviewed A1c. Reviewed vitals, CBC, PTT, INR, CMP, UA, UDS, overnight hospitalist and ER provider notes. Repeat blood counts, chemistry requested. Discussed with him initiation of statin. Pending therapy evaluations. Follow-up with neurology after discharge. Reviewed B12 Discussed with case management specialist, Occupational Therapy, nursing. COPD without acute exacerbation. Recovering from influenza infection. Patient was on oxygen in the past, currently saturating well 94% room air Active smoker: Will use nicotine patch 21 mg, he smokes 1 pack/day Hypertension: Permissive hypertension. Blood pressure soft, stop lisinopril. Full code Cardiac DuoNeb on as-needed basis DVT prophylaxis: SCDs Attestations 2 Medical Necessity Statement*: Continue hospitalization for assessment and management after acute CVA, status post TNK. Coding Level of Care Code Critical Care >/= 30 minutes Critical care time (in minutes): 35 The high probability of a clinically significant, sudden or life threatening deterioration, as referenced in this documentation, required my full and direct attention, intervention and personal management. The critical care time shown is in addition to time spent performing any reported separately billable procedures and includes the following: [x] Data and vital sign review and interpretation [x ] Patient assessment, examination and intervention [x] Medication orders and management [x] Patient/Family updates as able [x] Care Coordination and Documentation. Diagnoses Smoking greater than 40 pack years F17.210 Acute CVA (cerebrovascular accident) I63.9 Thrombolytic therapy administered within 2 hours of onset of symptoms
--- NOTE | 2024-06-03 08:27 | PC.NURSE ---
Unable to palpate or doppler RLE pulse. Extremity cooler to touch than left. No complaints. Pt coughing and C/O generalized fatigue. States he is getting over the flu for a week now. Stated symptoms began on 05/27/24. Denies getting seen by medical personnel or tested. Dr Jeronimo notified. Orders received.
--- NOTE | 2024-06-03 08:39 | USCV_ITS ---
Yobany Childs Age: 63 Gender: M : 1960 Exam Date: 06/03/2024 10:10 Ordering Phys: Hector Jeronimo MD Technologist: Exam Location: [facility] – [place] Indication: Dcreased Pulses FINDINGS The ABIs on the right side was 0.61. No Doppler signals were obtained in the dorsalis pedis artery on the right side On the left, the CRISTINA was 0.85. The TBI on the right was 0.46 and that on the left was 0.74 CONCLUSIONS 1. Features of moderate peripheral artery disease on the right side with a possible occlusion of the dorsalis pedis artery 2. Mildly diminished resting CRISTINA within normal resting TBI on the left side suggesting mild peripheral artery disease No similar previous studies are available for comparison Dr Shi Hall MD [facility] (Electronically Signed) Final Date: 12 June 2024 14:06 S
[2024-06-03] MEDS: allopurinol 100 mg Tablet PO (10:02)
[2024-06-03] MEDS: atorvastatin 40 mg Tablet 80 MG PO (10:02)
[2024-06-03] MEDS: sennosides-docusate Tablet 1 TAB PO (10:02)
[2024-06-03 13:41] LABS: Adenovirus Not Detected (NOT DETECT); Chlamydia Pneumoniae Not Detected (NOT DETECT); Coronavirus 229E,HKU1,NL63,OC4 Not Detected (NOT DETECT); Human Metapneumovirus Not Detected (NOT DETECT); Human Rhinovirus/Enterovirus Not Detected (NOT DETECT); Influenza A Not Detected (NOT DETECT); Influenza A H1 Not Detected (NOT DETECT); Influenza A H1-2009 Not Detected (NOT DETECT); Influenza A H3 Not Detected (NOT DETECT); Influenza B Not Detected (NOT DETECT); Mycoplasma Pneumoniae Not Detected (NOT DETECT); Parainfluenza Virus Type 1 Not Detected (NOT DETECT); Parainfluenza Virus Type 2 Not Detected (NOT DETECT); Parainfluenza Virus Type 3 Not Detected (NOT DETECT); Parainfluenza Virus Type 4 Not Detected (NOT DETECT); Respiratory Syncytial Virus A Not Detected (NOT DETECT); Respiratory Syncytial Virus B Not Detected (NOT DETECT); SARS-COV-2 Not Detected (NOT DETECT)
--- NOTE | 2024-06-03 16:44 | PC.OT ---
OT EVALUATION ATTEMPTED; PATIENT SLEEPING SOUNDLY. WILL ATTEMPT AGAIN TOMORROW.
--- NOTE | 2024-06-03 22:00 | CTR_ITS ---
PROCEDURE INFORMATION: Exam: CT Head Without Contrast Exam date and time: 06/03/2024 10:05 PM Age: 63 years old Clinical indication: Other: 24 hr follow up tnk; Additional info: 24 hrs after tnk TECHNIQUE: Imaging protocol: Computed tomography of the head without contrast. Radiation optimization: All CT scans at this facility use at least one of these dose optimization techniques: automated exposure control; mA and/or kV adjustment per patient size (includes targeted exams where dose is matched to clinical indication); or iterative reconstruction. COMPARISON: CT angio headneck* [id number] 06/02/2024 9:15 PM RADIATION DOSE METRICS: Total DLP (mGy-cm): 943.18 FINDINGS: Brain: Periventricular white matter changes likely related to chronic ischemic small vessel disease. No intracranial mass, hemorrhage or recent infarct. Encephalomalacia present in the right frontal and bilateral parietal lobes. Brain atrophy present. No midline shift or mass effect. Old infarct right basal ganglia. Cerebral ventricles: No ventriculomegaly. Paranasal sinuses: Visualized sinuses are unremarkable. No fluid levels. Mastoid air cells: Visualized mastoid air cells are well aerated. Bones: Unremarkable. No acute fracture. Soft tissues: Unremarkable. CT/CT head wo con* [id number] IMPRESSION: No acute intracranial abnormality.
--- NOTE | 2024-06-03 23:16 | USCV_ITS ---
MauricioYobany kelley Age: 63 Gender: M : 1960 Exam Date: 06/03/2024 08:23 Ordering Phys: Leta Wesley MD Technologist: Exam Location: [facility] – [place] Indication: cva BP: 122 / 68 HR: 72 Rhythm: Sinus Technical Quality: Adequate MEASUREMENTS (Male / Female) Normal Values 2D ECHO LV Ejection Fraction MOD 4C 59.5 % LV Ejection Fraction MOD 2C 63.7 % LV Ejection Fraction 2C AL 64.2 % RA Systolic Volume 4C AL 29.0 ml RA Systolic Volume 4C MOD 27.7 ml IVC Diameter 1.6 cm DOPPLER AV Peak Velocity 104.0 cm/s LVOT Peak Velocity 84.0 cm/s MV Peak Velocity 85.0 cm/s MV Area PHT 2.9 cm squared Mitral E to A Ratio 1.1 TR Peak Velocity 156.0 cm/s TR Peak Gradient 9.7 mmHg TV Peak E Velocity 95.0 cm/s FINDINGS Left Ventricle LV systolic function is normal with EF of 55-60%. No regional wall motion abnormalities. Right Ventricle Normal in size and function Right Atrium Normal in size. Bubble study is suboptimal but grossly no cross over of bubbles seen. Left Atrium Normal in size Mitral Valve Structurally normal Aortic Valve Not well visualized Tricuspid Valve Insufficient TR jet to calculate RVSP Pulmonic Valve Not visualized Pericardium Normal Aorta Not well visualized IVC Normal CONCLUSIONS LV systolic function is normal with EF of 55-60% Bubble study is suboptimal but grossly no cross over of bubbles seen. Gianfranco Blankenship MD (Electronically Signed) Final Date: 04 June 2024 21:01 S
[2024-06-04 05:27] LABS: Hematocrit 46.6 % (37-53); Mean Corpuscular HGB Conc 34.5 g/dL (30-55); Mean Corpuscular Hemoglobin 32.1 pg (27-33); Mean Corpuscular Volume 92.8 fl (82-101); Mean Platelet Volume 10.5 fL (7.4-10.4); Platelet Count 165 10^3/cmm (157-399); Red Blood Count 5.02 10^6/uL (3.85-5.65); Red Cell Distribution Width 12.8 % (12.1-15.1); White Blood Count 5.62 10^3/uL (3.29-11.43)
[2024-06-04 06:06] LABS: Anion Gap 11.6 (5-19); Blood Urea Nitrogen 12 mg/dL (8-23); Calcium 9.1 mg/dL (8.5-10.5); Carbon Dioxide 30 mmol/L (22-29); Chloride 101 mmol/L (98-107); Creatinine Clr Calc Pharmacy 84.3452; Glomerular Filtration Rate 114.3 mL/min (90-130); Glucose 93 mg/dL (65-115); Osmolality Calculated 285 mOsm/kg (285-295); Potassium 4.6 mmol/L (3.5-5.1); Sodium 138 mmol/L (136-145)
[2024-06-04] MEDS: aspirin 81 mg EC Tablet PO (08:07)
[2024-06-04] MEDS: atorvastatin 40 mg Tablet 80 MG PO (08:07)
[2024-06-04] MEDS: clopidogrel 75 mg Tablet PO (08:07)
[2024-06-04] MEDS: sennosides-docusate Tablet 1 TAB PO (08:07)
[2024-06-04] MEDS: allopurinol 100 mg Tablet PO (08:08)
[2024-06-04 08:38] LABS: Absolute Neutrophil 2.1 10^3/cmm (1.4-6.5); Absolute Segmented Neutrophil 2.1 10/cmm (1.6-7.1); Eosinophils 0 %; Lymphocytes 22 %; Lymphocytes Absolute 3.1 10^3/cmm (1.2-3.4); Monocytes Absolute 0.4 10^3/cmm (0.1-0.6); Platelet Estimate Decreased (Normal); Segmented Neutrophils 37 %; Slide Review Slide Review Perform; Total Cells Counted 100 (0-100)
--- NOTE | 2024-06-04 09:18 | PC.NURSE ---
yoga coordinator rounds @0910: patient doing well, wants to go home today, stroke education book left with patient.
--- NOTE | 2024-06-04 09:24 | P.DS_ITS ---
Discharge Providers Date of Admission: 06/02/24 23:16 Date of Discharge: June 04, 2024 Attending Provider at Admission: Leta Wesley MD Attending Provider at Discharge: Hector Jeronimo Primary Care Provider: Maria Teresa Banks Diagnoses at Discharge Discharge Diagnosis (1) Smoking greater than 40 pack years: Status: Acute (2) Acute CVA (cerebrovascular accident): Status: Acute (3) Thrombolytic therapy administered within 2 hours of onset of symptoms: Status: Acute Reason for Visit Reason for Visit: Possible Stroke Hospital Course Hospital Course Pleasant 64-year-old gentleman with history of smoking, HTN, prior CVA, other medical conditions, who was admitted after presenting with acute left upper and lower extremity weakness, slurred speech, received treatment with TNK with improvement in symptoms, some residual mild left leg weakness. 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 Mild stenosis of the origin left internal carotid arteries. No acute large vessel occlusion. He was started on statin. Reassessment CT head without bleed 24 hours after TNK. He was started on aspirin and continued on Plavix. Without noted arrhythmia. Echocardiogram bubble study has been obtained and pending. He is encouraged to quit smoking and prescription given for nicotine replacement. He is asked to follow-up with neurology for additional assessment. During hospitalization also incidentally identified chronic issue with cool to touch right lower extremity with noted PAD, without palpable or dopplerable PT or DP pulses. Discussed with patient. Otherwise extremity not cyanotic, not dusky in discoloration, without any pain, does not feel different than usual. He reports longstanding issues with that foot. CRISTINA ultrasound has been obtained and results pending follow-up with cardiology discussed with him with referral placed. Aspirin, Plavix, statin as above. He will also discuss consideration of anticoagulation follow-up. He otherwise did well with physical, occupational and speech therapy. Physical Exam Const: COMMON NORMALS: patient oriented x3 and alert GENERAL APPEARANCE: cooperative ORIENTATION/CONSCIOUSNESS: Yes awake HENMT: COMMON NORMALS: oropharynx normal Neck/C-Spine: COMMON NORMALS: no JVD Resp: COMMON NORMALS: normal respiratory effort and clear to auscultation bilaterally AUSCULTATION: clear to auscultation bilaterally Cardio: COMMON NORMALS: no JVD, regular rhythm, S1 normal heart sound present, S2 normal heart sound present and No murmurs present (Cardio) RHYTHM: regular rhythm HEART SOUNDS: S1 normal heart sound present and S2 normal heart sound present GI: COMMON NORMALS: Normal to inspection, nondistended, normoactive bowel sounds present, Soft to palpation and non-tender PALPATION: Yes Soft to palpation Extremity: COMMON NORMALS: no joint enlargement and no pedal edema Neuro: COMMON NORMALS: patient oriented x3 and moves all extremities SENSORIUM/ORIENTATION: Yes alert OTHER: He is awake and alert, responding properly, no difficulties following direc tions. Facial droop, no dysarthria, without perceptible aphasia currently. No difficulty with horizontal tracking. Visual landin full to confrontation. No visual extinction. FNF intact. No drift bilateral upper extremities, minimal drift left lower extremity. Sensation intact. No sensory extinction. Skin: COMMON NORMALS: no rashes or lesions noted GENERAL SKIN EXAM: no rashes or lesions noted Discharge Data Studies Completed and Pending Completed Studies During Hospitalization Category Date Time Status CT angio headneck* [id number] Stat Cat Scan 06/02/24 21:[address] head thrombolytic [id number] Stat Cat Scan 06/02/24 21:[address] head wo con* [id number] Routine Cat Scan 06/03/24 22:00 Completed XR chest 1V portable [id number] Stat Exams 06/02/24 21:05 Completed Pending at discharge Category Date Time Status Basic Metabolic Panel AM LABS Lab 06/05/24 04:00 Ordered Basic Metabolic Panel AM LABS Lab 06/06/24 04:00 Ordered CV. echo w/w bubble cont [id number] Stat Ultrasound 06/03/24 23:16 Taken US CRISTINA [CV ankle brachial index [id number]] Routine Ultrasound 06/03/24 08:39 Taken Radiology Impressions Chest X-Ray 06/02/24 21:05 IMPRESSION: No acute findings. Head/Neck CTA 06/02/24 21:05 IMPRESSION: 1. No acute large vessel occlusion. 2. Chronically occluded M1 segment of the right MCA and distal portion of the left vertebral artery with collateralized vasculature. IMPRESSION: 1. No acute large vessel occlusion. 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 2. Mild stenosis at the origins of the internal carotid arteries. REFERENCES: NASCET CRITERIA. The degree of stenosis in the cervical segment of the internal carotid artery is based on NASCET criteria. Normal is no stenosis. Mild is less than 50% stenosis. Moderate is 50-69% stenosis. Severe is 70% to 99% stenosis. Total occlusion is no detectable patent lumen. ADDENDUM: 06/02/[id number] Findings were discussed with YSABEL MALONEY at 06/02/2024 9:49 PM REGULAR SENIOR CARE PROVIDER. Head CT 06/03/24 22:00 IMPRESSION: No acute intracranial abnormality. Laboratory Results WBC 5.62 10^3/uL (3.29-11.43) 06/04/24 03:07 RBC 5.02 10^6/uL (3.85-5.65) 06/04/24 03:07 Hgb 16.10 g/dL (11.27-16.99) 06/04/24 03:07 Hct 46.6 % (37-53) 06/04/24 03:07 MCV 92.8 fl (82-101) 06/04/24 03:07 MCH 32.1 pg (27-33) 06/04/24 03:07 MCHC 34.5 g/dL (30-55) 06/04/24 03:07 RDW 12.8 % (12.1-15.1) 06/04/24 03:07 Plt Count 165 10^3/cmm (157-399) 06/04/24 03:07 MPV 10.5 fL (7.4-10.4) H 06/04/24 03:07 Neut % (Auto) 40.4 % 06/02/24 21:10 Lymph % (Auto) Not Reportable 06/04/24 03:07 [place] % (Auto) Not Reportable 06/04/24 03:07 Eos % (Auto) 0.4 % 06/02/24 21:10 Baso % (Auto) 0.4 % 06/02/24 21:10 Neut # (Auto) 2.69 10^3/uL (1.8-7.7) 06/02/24 21:10 Lymph # (Auto) Not Reportable 06/04/24 03:07 [place] # (Auto) Not Reportable 06/04/24 03:07 Eos # (Auto) 0.0 10^3/uL (0.0-0.8) 06/02/24 21:10 Baso # (Auto) 0.0 10^3/uL (0.0-0.1) 06/02/24 21:10 Nucleated RBC % (auto) 0 % 06/02/24 21:10 Total Counted 100 (0-100) 06/04/24 03:07 Atypical Lymphs % 33.0 % (0-5) H 06/04/24 03:07 Absolute Neutrophils 2.1 10^3/cmm (1.4-6.5) 06/04/24 03:07 Segmented Neutrophils 37 % 06/04/24 03:07 Band Neutrophils 0.0 % 06/04/24 03:07 Absolute Lymphocytes 3.1 10^3/cmm (1.2-3.4) 06/04/24 03:07 Lymphocytes (Manual) 22 % 06/04/24 03:07 Monocytes (Manual) 8.0 % 06/04/24 03:07 Absolute Monocytes 0.4 10^3/cmm (0.1-0.6) 06/04/24 03:07 Eosinophils (Manual) 0 % 06/04/24 03:07 Absolute Eosinophils 0.0 10^3/cmm (0.0-0.7) 06/04/24 03:07 Basophils (Manual) 0.0 % 06/04/24 03:07 Absolute Basophils 0.0 10^3/cmm (0.0-0.2) 06/04/24 03:07 Nucleated RBCs # 0.0 /100WBC 06/02/24 21:10 Platelet Estimate Decreased (Normal) 06/04/24 03:07 PT 11.80 SECONDS (12.1-14.9) L 06/02/24 21:10 INR 0.81 (0.8-1.2) 06/02/24 21:10 APTT 28.6 SECONDS (23.9-36.7) 06/02/24 21:10 Sodium 138 mmol/L (136-145) 06/04/24 03:07 Potassium 4.6 mmol/L (3.5-5.1) 06/04/24 03:07 Chloride 101 mmol/L (98-107) 06/04/24 03:07 Carbon Dioxide 30 mmol/L (22-29) H 06/04/24 03:07 Anion Gap 11.6 (5-19) 06/04/24 03:07 BUN 12 mg/dL (8-23) 06/04/24 03:07 Creatinine 0.7 mg/dL (0.7-1.2) 06/04/24 03:07 GFR Calculation 114.3 mL/min (90-130) 06/04/24 03:07 Glucose 93 mg/dL (65-115) 06/04/24 03:07 Estimat Average Glucose 105 06/02/24 21:10 Hemoglobin A1c 5.3 % (4.0-6.0) 06/02/24 21:10 Calculated Osmolality 285 mOsm/kg (285-295) 06/04/24 03:07 Calcium 9.1 mg/dL (8.5-10.5) 06/04/24 03:07 Total Bilirubin 0.2 mg/dL (0.15-1.2) 06/02/24 21:10 AST 36 U/L (0-40) 06/02/24 21:10 ALT 25 U/L (0-41) 06/02/24 21:10 Alkaline Phosphatase 48 U/L (40-130) 06/02/24 21:10 Total Protein 6.2 g/dL (6.6-8.7) L 06/02/24 21:10 Albumin 3.8 g/dL (3.5-5.2) 06/02/24 21:10 Globulin 2.4 g/dL (1.3-4.6) 06/02/24 21:10 Vitamin B12 539 pg/mL (232-1245) 06/02/24 21:10 Urine Color Yellow (Yellow) 06/02/24 22:10 Urine Appearance Clear (CLEAR) 06/02/24 22:10 Urine pH 6.5 (5-7) 06/02/24 22:10 Ur Specific [place] 1.011 (1.005-1.030) 06/02/24 22:10 Urine Protein Negative (Negative) 06/02/24 22:10 Urine Glucose (UA) Negative (Normal) 06/02/24 22:10 Urine Ketones Negative (Negative) 06/02/24 22:10 Urine Blood Negative (Negative) 06/02/24 22:10 Urine Nitrate Negative (Negative) 06/02/24 22:10 Urine Bilirubin Negative (Negative) 06/02/24 22:10 Urine Urobilinogen 0.2 mg/dL (Negative) 06/02/24 22:10 Ur Leukocyte Esterase Negative (Negative) 06/02/24 22:10 Urine RBC 0-2 /hpf (0-2) 06/02/24 22:10 Urine WBC 0-5 /hpf (0-5) 06/02/24 22:10 Ur Squamous Epith Cells 0-5 /hpf (0-5) 06/02/24 22:10 Amorphous Sediment Not Reportable 06/02/24 22:10 Urine Bacteria None seen /hpf (NONE) 06/02/24 22:10 Hyaline Casts 0-4 /lpf H 06/02/24 22:10 Urine Opiates Screen Negative ng/mL (Negative) 06/02/24 22:10 Ur Barbiturates Screen Negative ng/mL (Negative) 06/02/24 22:10 Ur Phencyclidine Scrn Negative ng/mL (Negative) 06/02/24 22:10 Ur Amphetamines Screen Negative ng/mL (Negative) 06/02/24 22:10 U Benzodiazepines Scrn Negative ng/mL (Negative) 06/02/24 22:10 Urine Cocaine Screen Negative ng/mL (Negative) 06/02/24 22:10 U Marijuana (THC) Screen Negative ng/mL (Negative) 06/02/24 22:10 Ethyl Alcohol 40 mg/dL (0-10) H 06/02/24 21:10 Adenovirus (PCR) Not detected (NOT DETECT) 06/03/24 11:20 C. pneumoniae DNA (PCR) Not detected (NOT DETECT) 06/03/24 11:20 Coronavirus 229E (PCR) Not detected (NOT DETECT) 06/03/24 11:20 Human Metapneumovir PCR Not detected (NOT DETECT) 06/03/24 11:20 Influenza A (H1) PCR Not detected (NOT DETECT) 06/03/24 11:20 Influ A (H1/09) PCR Not detected (NOT DETECT) 06/03/24 11:20 Influenza A (H3) PCR Not detected (NOT DETECT) 06/03/24 11:20 Influenza Type A (PCR) Not detected (NOT DETECT) 06/03/24 11:20 Influenza Type B (PCR) Not detected (NOT DETECT) 06/03/24 11:20 M. pneumoniae (PCR) Not detected (NOT DETECT) 06/03/24 11:20 Parainfluenza 1 (PCR) Not detected (NOT DETECT) 06/03/24 11:20 Parainfluenza 2 (PCR) Not detected (NOT DETECT) 06/03/24 11:20 Parainfluenza 3 (PCR) Not detected (NOT DETECT) 06/03/24 11:20 Parainfluenza 4 (PCR) Not detected (NOT DETECT) 06/03/24 11:20 RSV Type A (PCR) Not detected (NOT DETECT) 06/03/24 11:20 RSV Type B (PCR) Not detected (NOT DETECT) 06/03/24 11:20 Entero/Rhino (PCR) Not detected (NOT DETECT) 06/03/24 11:20 SARS-CoV-2 (PCR) Not detected (NOT DETECT) 06/03/24 11:20 Vitals Last Vital Signs Temp 98.7 F 06/03/24 07:37 Pulse 54 L 06/03/24 22:00 Resp 22 H 06/03/24 17:00 BP 138/76 06/03/24 17:00 Pulse Ox 98 06/03/24 07:41 O2 Del Method Room Air 06/03/24 10:27 Discharge Plan Discharge Patient Disposition: Home Condition: Stable Prescriptions: New atorvastatin 40 mg Tablet 80 mg PO DAILY Qty: 90 0RF aspirin 81 mg Tablet,Delayed Release (Dr/Ec) 81 mg PO DAILY Qty: 90 0RF nicotine 21 mg/24 hr Patch 24 Hour 1 patch transdermal DAILY PRN (Reason: Withdrawal) Qty: 90 0RF Continued clopidogrel [Plavix] 75 mg tablet 75 mg PO QDAY Qty: 30 5RF allopurinol 100 mg tablet 100 mg PO DAILY losartan 50 mg tablet 50 mg PO DAILY amlodipine 5 mg tablet 5 mg PO BEDTIME trazodone 100 mg tablet 100 mg PO BEDTIME paroxetine HCl 40 mg tablet 40 mg PO DAILY Discharge Orders: Discharge Order (Routine); Ordered 06/04/24 Ordered By: Hector Jeronimo Referrals: Noe Madden MD [Physician] - 7-10 days (September 16 at 2:30) Leta Leggett MD [Physician] - 1 week (R foot PAD, no pulses) Maria Teresa Banks [Primary Care Provider] - 4-7 days (Jun.07. Check in at 1:05 and bring all hospital paperwork. ) Discharge Diet: Cardiac Discharge Activity: As per PT/OT instructions Patient Instructions: Aspirin (By mouth), Atorvastatin (By mouth), How to Stop Smoking (GEN), Cigarette Smoking and Your Health (GEN), Ischemic Stroke (GEN) Activity Restrictions/Additional Instructions: Please follow-up with your primary provider as well as with neurology for reassessment after stroke and treatment with clot Buster medication (TNK). Continue aspirin, Plavix. Follow-up with neurology to discuss whether you can discontinue Plavix after 21 days. Please attempt to quit smoking, continue smoking increases your risk for additional stroke, heart attack, in addition to chronic lung disease, cancer and other complications. Continue to monitor blood pressures at home 3 times daily. Target blood pressure is 120/80. Continue to work with her primary provider to maintain good blood pressures. Follow up with cardiology regarding severe arterial disease and poor blood flow in R foot. As discussed, seek medical attention immediately in case of any sign of worsening compromise in case of color change or fluid, loss of sensation, foot becoming pale, cold to touch, or appearance of wound/ulcer or swelling, redness or any other concerning symptoms. Follow-up with your primary provider for reassessment of COPD. Seek medical attention in case of any worsening or new concerning symptoms. Discharge Attestations Time Spent in Discharge Care*: greater than 30 min Quality Metrics Clinical Quality Measures [ Cerebrovascular Accident { Contraindication to Antithrombotic: None; antithrombotic prescribed; Contraindication to Anticoagulation: Overlap treatment not indicated; Contraindication to Statin: None; Statin prescribed;}] Coding Level of Care Code 74335 Total time (in minutes) for Discharge: 50 Diagnoses Smoking greater than 40 pack years F17.210 Acute CVA (cerebrovascular accident) I63.9 Thrombolytic therapy administered within 2 hours of onset of symptoms
[2024-06-04 09:48] VITALS: O2SAT 95; O2SAT 97
[2024-06-04 13:17] VITALS: BP 123/76; PULSE 84; RESP 17; TEMP 37; O2SAT 96
--- NOTE | 2024-06-13 10:47 | PC.NURSE ---
footwear sales coordinator follow up phone call, pt doing well post TNK, no adverse effects since being home, no bleeding, monitoring blood pressures at home and staying in range, no issues with new medications, has already seen primary care, has apt with Dr. Leggett (cardio) on the and neurology follow up is also scheduled, patient has not quit smoking but states he has cut down a lot , able to do ADLs at home following PT/OT recommendations.
== END 2024-06-04 13:33 | disposition home or self-care (01) ==
LOC: ER 06-03 00:21 → ER IP 06-03 07:29 → ICU 06-03 08:04
PROVIDERS: Admitting Provider Internal Medicine; Emergency Provider Emergency Medicine; PCP Registered Nurse; Visit Provider Internal Medicine
DX: I63.9 Cerebral infarction, unspecified (principal); R29.704 NIHSS score 4; F17.210 Nicotine dependence, cigarettes, uncomplicated; I10 Essential (primary) hypertension; Z79.01 Long term (current) use of anticoagulants; J44.1 Chronic obstructive pulmonary disease with (acute) exacerbation
CPT/HCPCS: 36415; 70450; 70496; 70498; 71045; 80048; 80053; 80306; 80307; 81001; 82607; 83036; 85007; 85025; 85610; 85730; 87486; 87581; 87633; 92523; 92610; 93005; 93922; 94760; 96374; 97116; 97161; 97165; 99291; C8929; G0378; J3101

== ENCOUNTER → 2024-06-27 14:10 | Outpatient (BNVA) | payer MEDICARE, SELFPAY | PROVIDERS: PCP Registered Nurse; Visit Provider Internal Medicine | DX: I73.9 Peripheral vascular disease, unspecified (principal); I10 Essential (primary) hypertension | CPT/HCPCS: 99214 ==

== ENCOUNTER 2024-07-18 13:40 | Outpatient (CLI) | payer MEDICARE, SELFPAY ==
--- NOTE | 2024-07-18 14:00 | CTR_ITS ---
PROCEDURE INFORMATION: Exam: CTA Abdominal Aorta and Bilateral Lower Extremities (Run-off) With Contrast Exam date and time: 07/18/2024 2:41 PM Age: 63 years old Clinical indication: Foot and lower extremity; Bilateral; Pad, numbness in both lower extremities to feet; Additional info: Pad, per Dr. Blankenship to be done with runoff. TECHNIQUE: Imaging protocol: Computed tomographic angiography of the of the abdominal aorta, pelvis and bilateral lower extremities with contrast. 3D rendering (Not supervised by radiologist): MIP and/or 3D reconstructed images were created by the technologist. Radiation optimization: All CT scans at this facility use at least one of these dose optimization techniques: automated exposure control; mA and/or kV adjustment per patient size (includes targeted exams where dose is matched to clinical indication); or iterative reconstruction. Contrast material: OMNIPAQUE 350; Contrast volume: 125 ml; Contrast route: INTRAVENOUS (IV); COMPARISON: US CV ankle brachial index 99336 06/03/2024 10:10 AM RADIATION DOSE METRICS: Total DLP (mGy-cm): 1334.48 FINDINGS: Aorta: Extensive aortic atherosclerotic disease. Celiac trunk and mesenteric arteries: No occlusion or significant stenosis. Renal arteries: No occlusion or significant stenosis. Right iliac arteries: Right common iliac artery appears occluded with reconstitution of the right external and internal iliac arteries as well as throughout the remainder of the right lower extremity. Right external iliac artery scattered atherosclerotic plaque with areas of up to 80-90% luminal narrowing. Right internal iliac artery scattered atherosclerotic plaque with areas of up to 80-90% luminal narrowing. Right femoral/popliteal arteries: No occlusion or significant stenosis. Right infrapopliteal arteries: No occlusion or significant stenosis. Left iliac arteries: Left common iliac scattered atherosclerotic plaque with up to 70-80% luminal narrowing in the midportion. Left internal and external iliac artery extensive atherosclerotic calcifications with areas of 50-60% luminal narrowing. Left femoral/popliteal arteries: No occlusion or significant stenosis. Left infrapopliteal arteries: No occlusion or significant stenosis. Liver: No mass. Gallbladder and biliary ducts: Unremarkable. No calcified stones. No ductal dilation. Pancreas: Unremarkable. No mass. No ductal dilation. Spleen: Normal. No splenomegaly. Adrenal glands: Normal. No mass. Kidneys and ureters: Normal. No mass. Stomach and bowel: Unremarkable. No obstruction. No mucosal thickening. Appendix: No evidence of appendicitis. Urinary bladder: Unremarkable. No mass. Reproductive: Unremarkable as visualized. Intraperitoneal space: Unremarkable. No free air. No significant fluid collection. Lymph nodes: No lymphadenopathy. 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 Consider further evaluation with an MRI of the spine. Left distal femoral metaphyseal 2 cm sclerotic bony lesion suggestive of a benign enchondroma, consider correlation with whole-body nuclear medicine bone scan. Soft tissues: Unremarkable. CT/CT angio abd aorta runof [id number] IMPRESSION: 1. Right common iliac artery appears occluded with reconstitution of the right external and internal iliac arteries as well as throughout the remainder of the right lower extremity. 2. Right external iliac artery scattered atherosclerotic plaque with areas of up to 80-90% luminal narrowing. 3. Right internal iliac artery scattered atherosclerotic plaque with areas of up to 80-90% luminal narrowing. 4. Left common iliac scattered atherosclerotic plaque with up to 70-80% luminal narrowing in the midportion. 5. Left internal and external iliac artery extensive atherosclerotic calcifications with areas of 50-60% luminal narrowing. 6. Extensive aortic atherosclerotic disease. 7. 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 Consider further evaluation with an MRI of the spine. 8. Left distal femoral metaphyseal 2 cm sclerotic bony lesion suggestive of a benign enchondroma, consider correlation with whole-body nuclear medicine bone scan.
[2024-07-18] MEDS: iohexol 350 mg/mL 500 mL Btl (per mL) IV (15:02)
== END 2024-07-18 13:41 | disposition home or self-care (01) ==
PROVIDERS: PCP Family Medicine; Visit Provider Internal Medicine
DX: I73.9 Peripheral vascular disease, unspecified (principal); I74.5 Embolism and thrombosis of iliac artery; I70.8 Atherosclerosis of other arteries; I70.0 Atherosclerosis of aorta; M43.06 Spondylolysis, lumbar region; R93.89 Abnormal findings on diagnostic imaging of other specified body structures
CPT/HCPCS: 75635

== ENCOUNTER 2024-08-12 09:02 | Outpatient (CLI) | payer MEDICARE, SELFPAY ==
[2024-08-12] VITALS (35 sets, daily range): BP systolic 51–163; BP diastolic 44–93; PULSE 51–85; RESP 6–24; TEMP 36.9–37.7; O2SAT 92–96; BMI 18.3
--- NOTE | 2024-08-12 09:00 | XACV_ITS ---
Exam Room: 2 Ht: 175 cm Wt: 56 kg BSA: 1.64 m2 Gender: Male : 1960 Any Known Allergies: Sulfa Exam Priority: Routine Procedure(s): Procedure Description: Diagnostic procedure Procedure Description: Peripheral Cath Diagnostic Procedure Procedure Description: Abdominal aortic angiography Procedure Description: Lower extremities' angiography Procedure Description: Peripheral vascular Intervention Procedure Description: PV Balloon Procedure Description: PV Stent Procedure Description: Miscellaneous Procedure Description: ACT Abdominal Diagnostic Findings Distal abdominal aorta is patent. Lower Extremity Diagnostic Findings INDICATION: 63-year-old man with past medical history of hypertension who has been having severe bilateral lifestyle-limiting claudication. ABIs were abnormal bilaterally. CTA showed bilateral severe iliac disease with total occlusion of right common iliac artery. Left Common Iliac Artery: Severe 70-80% stenosis. Right Common Iliac Artery: 100% stenosis. Right lower extremity findings: Ostial right common iliac artery is totally occluded. Proximal section of right external iliac artery is occluded with reconstitution via collaterals. The right common femoral artery is patent. Right SFA is patent. Right profunda is patent. Right popliteal artery is patent. Below the knee patient has three-vessel runoff to the foot. Left lower extremity findings: Left common iliac to external iliac artery is 70 to 80% stenosis. Left common femoral artery is patent. Left SFA is patent. Left profunda artery is patent. Left popliteal artery is patent. Below the knee patient has three-vessel runoff to the foot. Lower Extremity Interventional Findings Left common Iliac Artery: 70-80% stenosis treated with AB ARMADA 35 OTW [id number] and Omnilink Vascular Balloon-Expandable Sent System 7.0mm x 59mm. Right Common Iliac Artery: 100% stenosis treated with AB ARMADA 35 OTW [id number], Omnilink Vascular Balloon-Expandable Stent System 7.0mm x 59mm, Omnilink Vascular Balloon-Expandabel Stent System 6.0mm x 39mm, and AB ARMADA 35 OTW [id number]. Procedure detail: After diagnostic images were obtained, we accessed the right common femoral artery. Using Glidewire, we crossed totally occluded segment of right external and common iliac arteries. We predilated totally occluded segment of iliac arteries with 7.0 x 40 mm Starbuck balloon. This was followed by the placement of 7.0 x 59 mm and 6.0 x 39 mm overlapping Omnilink balloon expandable stents starting from right ostial common iliac artery into external iliac artery. At distal edge of the stents, there was small nonflow limiting dissection. IVUS was performed. As flow was brisk, we decided to treated medically. Left common iliac artery was treated with predilation with 7.0 x 40 mm Starbuck balloon. We then placed a 7.0 x 59 mm Omnilink stent. At this time final angiograms were performed that showed excellent stent expansion . Patient left the Claims Adjuster Crop in a stable condition. Conclusions Total occlusion of right common iliac/external iliac arteries status post successful revascularization with 2 stents. Severe stenosis of left commo/external iliac artery status post successful revascularization with 1 stent. There is significant bilateral lower extremity disease. Left Common Iliac Artery was treated with Balloon and Stent. Right Common Iliac Artery was treated with two Balloon and two Stent. Recommendations Dual antiplatelet therapy with aspirin and plavix. High intensity statin therapy. Outpatient cardiology follow up in 2 weeks. Pressures Phase:Rest AO : 156 / 62 ( 94 ) @ 11:31:00 AM Hemodynamic Data Phase:Rest AO : 156.0 / 62.0 ( 94.0 ) @ 11:31:00 AM Clinical Evaluation EBL: 5mL-10mL Procedural Details Procedure Consent Obtained. Pre-Procedure Time Out. Identified patient by full name and date of as verbalized by the patient/guarantor. Does the consent match the physician's order: Yes. Accurate & Complete Informed Consent: Yes. Inpatient/Outpatient History & Physical on Chart: Yes. If H&P is completed, is and addenduem needed: No. Visualize and Verify Site with Patient/Guarantor: N/A. Relevant Radiology Images available: Yes. The risks, benefits, and alternatives of sedation and/or procedure were discussed by physician. The patient agrees to continue. Procedure started. Current diagnosis: PVD. PERRLA. Strong, equal hand nail welter bilaterally. Lungs clear x 5 lobes. IV Site on Arrival: 20 gauge in the right anticubital. IV Fluids: 0.9% NaCl at KVO. 0 mL infused prior to woods laborer. Pre Procedural Pulses: bilateral dorsalis pedis was Doppled. Pre Procedural Pulses: bilateral posterior tibial was Doppled. Pre Procedural Pulses: bilateral radial was 3+. Oxygen started at 2liters/min via nasal canula. bilateral groins was prepped with chloroprep then draped in the usual sterile fashion. Physician notified. Baseline sample Acquired. HR: 60 BPM. Patient's family unavailable. Equipment: 6F - Femoral. Cardiac Cath Pack. ACIST Manifold Kit Model BT 2000. Heparinized Saline (2 units/mL), 1000 mL bag. Kit, Micropuncture. Physician arrived. Physician scrubbed in. Immediate Pre-Procedure Time Out. Correct Patient: Yes; Correct Procedure: Yes; Correct Site: Yes; Correct Patient Position: Yes; Correct Supplies: Yes; Dried Flammable Prep: Yes; Blood Products Available: N/A. Lidocaine 1% infiltrated to the left subclavian. Arterial access obtained with micropuncture set. A 5 Fr UF catheter in over the standard J wire. Pigtail postioned above the bifurcation of the iliacs. Aortagram performed @ 10 mL/sec for a total of 30 mL. Side port of sheath attached to Normal Saline flush at KVO to maintain patency. Lidocaine 1% infiltrated to the right groin. Arterial access obtained with micropuncture set using ultrasound guidance. Right common femoral selected and arteriogram with runoff performed @ 10 mL/sec for a total of 30 mL. 0.035 x 260cm stiff angled glidewire in through the sheath on the right. Inflation number : 1 A AB ARMADA 35 OTW [id number] was prepped and advanced across the Common Iliac, Right , then inflated to 6 JIM for 1:00 seconds. Inflation number: 2 The AB ARMADA 35 OTW [id number] was reinflated across the Common Iliac, Right, to 6 JIM for 1:00 seconds. Inflation number: 1 The AB ARMADA 35 OTW [id number] was reinflated across the Common Iliac, Left, to 6 JIM for 1:36 seconds. Balloon out. Pigtail postioned above the bifurcation of the iliacs. Aortagram performed @ 10 mL/sec for a total of 20 mL. UF catheter out on the left. A 2nd 0.035 x 260cm stiff angled glidewire in on the left. Inflation Number : 3 A Omnilink Vascular Balloon-Expandable Stent System 7.0mm x 59mm -Lot Number# [id number] was prepped and advanced across the Common Iliac, Right. The stent was deployed at 11 JIM for 2:00 seconds. Exp. . Stent balloon out over wire. Inflation Number : 4 A Omnilink Vascular Balloon-Expandabel Stent System 6.0mm x 39mm -Lot Number# [id number] was prepped and advanced across the Common Iliac, Right. The stent was deployed at 11 JIM for 1:57 seconds. Exp. . Stent balloon and wire out. A 5 Fr UF catheter in over the glidewire. Pigtail postioned above the bifurcation of the iliacs. Aortagram performed @ 10 mL/sec for a total of 30 mL. Balloon out. Inflation Number : 2 A Omnilink Vascular Balloon-Expandable Sent System 7.0mm x 59mm. -Lot Number# [id number] EXP 04/30/2025 was prepped and advanced across the Common Iliac, Left. The stent was deployed at 11 JIM for 1:53 seconds. Stent balloon out over wire. UF catheter out on the left over the exchange J wire. Exchange J left in place on the left. Glidewire in on the right. A 5 FrUF catheter in over the glidewire on the left. Pigtail postioned above the bifurcation of the iliacs. Aortagram performed @ 10 mL/sec for a total of 20 mL in DSA. Pigtail postioned above the bifurcation of the iliacs. Aortagram performed @ 10 mL/sec for a total of 20 mL. Sheath injected in Right common femoral artery and runoff performed @ 10mL/sec for a total of 20mL. The UF catheter on the left was attached to Normal saline flush at KVO to maintain patency. Exchange J wire out on the right, 0.014 x 181cm Runthrough guidewire in. IVUS catheter in over the Runthrough guidewire on the right. IVUS of the right common illiac performed. IVUS catheter out. Runthrough guidewire out, Glidewire in onthe right. Inflation number : 5 A AB ARMADA 35 OTW [id number] was prepped and advanced across the Common Iliac, Right , then inflated to 8 JIM for 0:30 seconds. Balloon out. Pigtail postioned above the bifurcation of the iliacs. Aortagram performed @ 10 mL/sec for a total of 20 mL. Pigtail postioned above the bifurcation of the iliacs. Aortagram performed @ 10 mL/sec for a total of 30 mL in DSA. ACT drawn. Results 346 seconds. Therapeutic limits - pre-heparin administration 90-150 seconds and monitoring heparin during a vascular procedure >250 seconds. Glidewire out on the right. UF catheter out over the exchange J wire on the left. Sheath injected in Left common femoral artery and runoff performed @ 10mL/sec for a total of 30mL. Dr. Blankenship scrubbed out. A Suture was successful obtaining hemostatsis at the Left Femoral artery insertion site. A Suture was successful obtaining hemostatsis at the Right Femoral artery insertion site. Sheath(s) sutured into position with 2-0 silk and sterile 4x4's and Op-site applied over the site. No oozing or signs and symptoms of hematoma noted. Arterial sheaths flushed and connected to tranducer and pressure bag with heparinized saline. Post Procedure: Pulses reassessed and unchanged. PERRLA. Strong, equal hand nail welter bilaterally. No VTE prophylaxis required. Medication's Wasted: Lidocaine 1% = 4 mL. Medication's Wasted: Nitro = 49.6 mg. Medication's Wasted: Heparin = 1000 units. Total IV fluids: 88 mL. Post-op diagnosis: S/P stenting of the Right common iliac x 2 and stenting of the left iliac stenting x 1. Complications: none. Estimated blood loss: 5mL-10mL. Responsiveness - Normal response to verbal stimuli; alert and oriented, PERRLA. Airway - Unaffected, no intervention required; spontaneous ventilation. Circulation: W/N/L, pulses unchanged. Nausea/Vomiting: No. Procedure completed. Patient transferred by bed to ICU. Vital chart was stopped. Access Site Site: Left Femoral artery Sheath Size: 6 Fr Hemostasis Method: Suture Hemostasis Success: Successful Site: Right Femoral artery Sheath Size: 6 Fr Hemostasis Method: Suture Hemostasis Success: Successful Procedure Medications Start: 10:22 AM Stop: 10:22 AM Medication: Versed Amount: 1 mg Route: I.V. Start: 10:22 AM Stop: 10:22 AM Medication: Fentanyl Amount: 50 mcg Route: I.V. Start: 10:28 AM Stop: 10:28 AM Medication: Versed Amount: 1 mg Route: I.V. Start: 10:41 AM Stop: 10:41 AM Medication: Fentanyl Amount: 25 mcg Route: I.V. Start: 10:42 AM Stop: 10:42 AM Medication: Heparin Amount: 2500 units Route: I.V. Start: 10:43 AM Stop: 10:43 AM Medication: Versed Amount: 1 mg Route: I.V. Start: 10:45 AM Stop: 10:45 AM Medication: Heparin Amount: 2500 units Route: I.V. Start: 11:20 AM Stop: 11:20 AM Medication: Heparin Amount: 1000 units Route: I.V. Start: 11:51 AM Stop: 11:51 AM Medication: Versed Amount: 1 mg Route: I.V. Start: 11:53 AM Stop: 11:53 AM Medication: Nitrogylcerin Amount: 400 mcg Route: I.A. Start: 11:56 AM Stop: 11:56 AM Medication: Fentanyl Amount: 25 mcg Route: I.V. Start: 12:06 PM Stop: 12:06 PM Medication: Plavix Amount: 300 mg Route: P.O. I, the attending physician, have reviewed and verified all procedure medications. Yes, all medications given per verbal order History/Risk Factors Hypertension: Yes Dyslipidemia: No Peripheral Arterial Disease (PAD): Yes Myocardial Infarction (MT): No Obesity: Yes Renal Disease: No Tobacco Use: Current/Recent(w/in 1 year) Prior Interventions PCI: No CABG: No Valve Surgery: No Report Signatures Finalized by Gianfranco Blankenship MD on 08/23/2024 08:42 AM
[2024-08-12] MEDS: diphenhydrAMINE 50 mg Capsule PO (09:38)
[2024-08-12] MEDS: aspirin 325 mg Tablet PO (09:38)
[2024-08-12 09:47] LABS: Basophils # 0.1 10^3/uL (0.0-0.1); Basophils % 0.8 %; Eosinophils # 0.2 10^3/uL (0.0-0.8); Eosinophils % 2.2 %; Hematocrit 46.1 % (37-53); Lymphocytes # 2.4 10^3/uL (0.8-4.8); Lymphocytes % 27.3 %; Mean Corpuscular HGB Conc 34.5 g/dL (30-55); Mean Corpuscular Hemoglobin 31.4 pg (27-33); Mean Corpuscular Volume 90.9 fl (82-101); Mean Platelet Volume 8.6 fL (7.4-10.4); Monocytes # 0.8 10^3/uL (0.2-0.9); Monocytes % 8.7 %; Neutrophils # 5.32 10^3/uL (1.8-7.7); Neutrophils % 60.8 %; Nucleated Red Blood Cells % 0 %; Platelet Count 281 10^3/cmm (157-399); Red Blood Count 5.07 10^6/uL (3.85-5.65); Red Cell Distribution Width 13.2 % (12.1-15.1); White Blood Count 8.75 10^3/uL (3.29-11.43)
[2024-08-12 10:04] LABS: Anion Gap 15.9 (5-19); Blood Urea Nitrogen 8 mg/dL (8-23); Calcium 9.1 mg/dL (8.5-10.5); Carbon Dioxide 25 mmol/L (22-29); Chloride 99 mmol/L (98-107); Creatinine Clr Calc Pharmacy 87.0458; Glomerular Filtration Rate 114.3 mL/min (90-130); Glucose 78 mg/dL (65-115); Osmolality Calculated 279 mOsm/kg (285-295); Potassium 3.9 mmol/L (3.5-5.1); Sodium 136 mmol/L (136-145)
--- NOTE | 2024-08-12 10:25 | W.PM.OPSFHP ---
Same Day Surgery H&P Indication for Procedure/HPI DATE OF PROCEDURE: August 12, 2024 CHIEF COMPLAINT/INDICATIONFOR SURGICAL PROCEDURE: Lifestyle limiting claudication PREOP DIAGNOSIS: Lifestyle limiting claudication PLANNED PROCEDURE: Operation Date: 08/12/24 10:00 Proposed Procedures p Peripheral Diagnostic - Periph Angio Bilat(Bilateral) - Gianfranco Blankenship M.D Possible peripheral intervention 63-year-old man with past medical history of hypertension who has been having severe bilateral lifestyle-limiting claudication. ABIs were abnormal bilaterally. CTA showed bilateral severe iliac disease with total occlusion of right common iliac artery. Medications/Allergies* Home Medications ?Medication ?Instructions ?Recorded ?Confirmed ?Type allopurinol 100 mg tablet 100 mg PO DAILY 01/18/23 08/12/24 History amlodipine 5 mg tablet 5 mg PO BEDTIME 06/03/24 08/12/24 History losartan 50 mg tablet 50 mg PO DAILY 06/03/24 08/12/24 History paroxetine HCl 40 mg tablet 40 mg PO DAILY 06/03/24 08/12/24 History trazodone 100 mg tablet 100 mg PO BEDTIME 06/03/24 08/12/24 History Allergies/Adverse Reactions Allergy/AdvReac Type Severity Reaction Status Date / Time Sulfa (Sulfonamide Allergy Mild hives Verified 06/27/24 14:46 Antibiotics) Current Medications: Generic Name Dose Route Start Last Admin Trade Name Freq PRN Reason Stop Dose Admin Sodium Chloride 1,000 mls @ 50 mls/hr 08/12/24 09:00 08/12/24 09:38 Sodium Chloride 0.9% IV 08/13/24 04:59 Not Given .Q20H ONE Pertinent History/Comorbid Conditions* Medical History (Updated 07/08/24 @ 11:44 by Gianfranco Blankenship M.D) Hypertension CVA (cerebrovascular accident) History of sciatica Polycythemia secondary to hypoxia History of gout Family History (Updated 11/22/22 @ 13:43 by Beatrice Duckworth LPN) Diabetes Hyperlipidemia Cancer Father Lung cancer Hypertension Stroke Denies family history of CAD (coronary artery disease) Clotting disorder Dementia Psychiatric illness Chronic kidney disease (CKD) Suicide Anesthesia complication Bleeding disorder Lung disease Social History Smoking and tobacco/nicotine status: current every day tobacco/nicotine user cigarettes Packs smoked per day: 0.75 Years cigarettes smoked: 40 Alcohol intake: current Alcohol intake frequency: 0-2 Drinks per Day Alcohol type: beer Substance/Drug Use: current Substance/Drug use frequency: daily Pertinent Exam Findings alert, oriented x 3, clear to auscultation bilaterally and regular rate & rhythm Conscious Sedation Assessment PATIENT ASSESSED PRIOR TO SEDATION, WITH NO CHANGE NOTED: Yes AIRWAY EVAL/ANESTHESIA PLAN: normal airway, ASA III, Local Anesthesia, Risks, benefits & alternatives of sedation and/or procedure discussed and Patient agrees to continue as planned ADDITIONAL INFORMATION: Moderate sedation Recommendations Risks and benefits of procedure reviewed and Patient/family agree to proceed Surgery/Procedure today (Peripheral angiogram/ Percutaneous peripheral intervention) Coding Level of Care Code Acute Code for [facility]
--- NOTE | 2024-08-12 12:14 | PM.PROC ---
Procedure Note: Date of procedure: 08/12/24 Pre-procedure diagnosis: Severe lifestyle limiting claudication Post-procedure diagnosis: other (Severe bilateral peripheral artery disease status post successful revascularization of right lower extremity with 2 stents and of left lower extremity with 1 stent) Procedure: Total occlusion of the right common iliac/external iliac artery status post successful revascularization with 2 stents. At distal edge of stent there is non-flow limiting dissection, will be treated medically. SFA left external iliac artery stenosis status post successful revascularization with 1 stent. Dual antiplatelet therapy with aspirin and plavix High intensity statin therapy Performing Provider: Gianfranco Blankenship Estimated blood loss (mL): 10 Complications: None Condition: stable Disposition: ICU Coding Level of Care Code Acute Code for [facility]
--- NOTE | 2024-08-12 12:33 | PC.NURSE ---
Addendum entered by Issac Hoover RN 08/12/24 16:15: nurse notified Dr russ of urinary retention and received orders for and placed garvin. 1000mL urine output. Original Note: Received patient from laboratory development technician staff at approximately 1225. Patient is sleeping heavily, but rousable. Maintaining his airway HR: 56, BP: 123/71, HR 94% on room air, RR 19. Nurse provided education to the the patient and his mother who is at beside. Education on plan of care and need to stay flat for 6 hours after sheath pull. Patient will need reinforcement as he was falling asleep during education. Belongings include clothing, shoes, phone, and wallet. Nurse palpated bladder. feels distended. Bladder scan reveals greater than 850mL retained. Nurse assisted patient with a urinal, but he was unable to void.
[2024-08-12] MEDS: sodium chloride 0.9% 1,000 ML 100 ML IV ×2 (13:17→21:23)
[2024-08-12 13:59] LABS: Partial Thromboplastin Time 148.2 SECONDS (23.9-36.7)
[2024-08-12] MEDS: losartan 50 mg Tablet PO (14:50)
[2024-08-12 16:16] LABS: Partial Thromboplastin Time 28.5 SECONDS (23.9-36.7)
[2024-08-12] MEDS: hyDRALAzine 20 mg/mL INJ 1 mL 10 MG IVP (16:57)
--- NOTE | 2024-08-12 18:30 | PC.NURSE ---
Shift SUmmay: Uneventful shift. patient has been compliant with bedrest restrictions so far. Bilateral sheaths removed. Both removed by 6pm. Bedrest is over a 12 midnight. Hematoma formed on left groin during sheath pull, less than 1cm in size. Dr petrona reyna.
[2024-08-12] MEDS: amlodipine 5 mg Tablet PO (21:22)
[2024-08-12] MEDS: trazodone 100 mg Tablet PO (21:22)
[2024-08-13] VITALS (9 sets, daily range): BP systolic 105–127; BP diastolic 50–90; PULSE 68–82; RESP 15–23; TEMP 37.2; O2SAT 90–94
[2024-08-13 03:47] LABS: Basophils # 0.1 10^3/uL (0.0-0.1); Basophils % 0.6 %; Eosinophils # 0.1 10^3/uL (0.0-0.8); Eosinophils % 0.7 %; Hematocrit 44.4 % (37-53); Lymphocytes # 2.1 10^3/uL (0.8-4.8); Lymphocytes % 23.6 %; Mean Corpuscular HGB Conc 34.2 g/dL (30-55); Mean Corpuscular Hemoglobin 31.6 pg (27-33); Mean Corpuscular Volume 92.3 fl (82-101); Mean Platelet Volume 8.5 fL (7.4-10.4); Neutrophils # 5.78 10^3/uL (1.8-7.7); Neutrophils % 63.9 %; Nucleated Red Blood Cells % 0 %; Platelet Count 243 10^3/cmm (157-399); Red Blood Count 4.81 10^6/uL (3.85-5.65); Red Cell Distribution Width 13.2 % (12.1-15.1); White Blood Count 9.03 10^3/uL (3.29-11.43)
[2024-08-13 04:08] LABS: Anion Gap 15.1 (5-19); Blood Urea Nitrogen 11 mg/dL (8-23); Calcium 8.7 mg/dL (8.5-10.5); Carbon Dioxide 26 mmol/L (22-29); Chloride 105 mmol/L (98-107); Creatinine Clr Calc Pharmacy 89.4021; Glucose 136 mg/dL (65-115); Osmolality Calculated 295 mOsm/kg (285-295); Potassium 4.1 mmol/L (3.5-5.1); Sodium 142 mmol/L (136-145)
[2024-08-13] MEDS: clopidogrel 75 mg Tablet PO (08:18)
[2024-08-13] MEDS: atorvastatin 40 mg Tablet 80 MG PO (08:19)
[2024-08-13] MEDS: aspirin 81 mg EC Tablet PO (08:19)
[2024-08-13] MEDS: allopurinol 100 mg Tablet PO (08:19)
[2024-08-13] MEDS: losartan 50 mg Tablet PO (08:20)
--- NOTE | 2024-08-13 09:48 | PC.NURSE ---
Discharge: Patient discharged. Educated patient on upcoming appointments, medications, and post cath activity restrictions/care. Hemphill was removed and patient was able to void since removal. Ambulated patient approximately 150 feet with no complications. IV removed. Mother came to pick patient up. Patient left with all belongings (clothing, phone, wallet, and stent cards). Discharge VItals: HR: 64, BP: 116/59, SPO2L 94%, RR:20. ALert, oriented to person, place, time, and situation. bilateral groin cath sites assessed again. Sites are unremarkable. Dressing is dry and intact. No external bleeding noted, no hematoma detected on either side. Pulses normal bilateral feet.
--- NOTE | 2024-08-13 10:17 | P.DS_ITS ---
<Statement entered by Gianfranco Blankenship M.D - 08/14/24 22:37> Patient was cared for in conjunction with an advanced practice practitioner. I personally reviewed the chart and all pertinent data including imaging, telemetry, and laboratory results. I discussed the patient in detail with the advanced practice practitioner. Please see their note for discharge summary, results and agreed upon plan of care for the patient. Discharge Providers Date of Admission: 08/12/2024 Date of Discharge: August 13, 2024 Attending Provider at Discharge: Gianfranco Blankenship M.D Primary Care Provider: Umberto Woodard Reason for Visit Reason for Visit: na Brief History: Severe bilateral peripheral arterial disease Hospital Course Hospital Course 63-year-old man with past medical history of hypertension, smoking who recently was admitted to hospital with stroke and received thrombolytic therapy. He was incidentally found to have diminished/no pulses and lower extremities. ABIs were abnormal bilaterally with a value of 0.61 on the right side and 0.85 in the left lower extremity. Lower extremity discomfort. He underwent peripheral angiogram. Total occlusion of the right common iliac/external iliac artery status post successful revascularization with 2 stents. At distal edge of stent there is non-flow limiting dissection, will be treated medically. SFA left external iliac artery stenosis status post successful revascularization with 1 stent. He did well post cath w/o complications. He was discharged home in stable to improved condition. Physical Exam Narrative: General: No apparent distress, healthy appearing, well nourished HENMT: normoceophalic Neck: No carotid bruit bilaterally Lymphatic: no lymphedema noted Respiratory: Normal respiratory effort, clear to auscultation bilaterally throughout all lung landin, no use of accessory muscles Cardio: No JVD, regular rate, regular rhythm, S1 S2 normal, no murmurs, peripheral pulses 2+ radial palpated bilaterally, 2+ PT and DP palpated bilaterally, 2+ femoral pulses palpated bilaterally GI: Normal to inspection, nondistended Extremities: Full ROM, normal, normal capillary refill, no cyanosis or edema Neuro: Alert and oriented x4, no focal motor deficits Psych: Affect normal, denies suicidal ideation, mental status grossly normal Skin: bilateral fem stick sites clean, dry, intact w/o evidence of hematoma Urinary Catheter Management: Hemphill: Cath Placed During This Visit: yes Reason for Continuing Indwelling Catheter: Accurate Measurement of Urinary O utput in Critically Ill Patients Urinary Catheter Date of Insertion: 08/12/24 Urinary Catheter Time of Insertion: 13:18 Discharge Data Studies Completed and Pending Pending at discharge Category Date Time Status DATA ANALYST request for service Routine Exams 08/12/24 09:00 Taken Laboratory Results WBC 9.03 10^3/uL (3.29-11.43) 08/13/24 03:34 RBC 4.81 10^6/uL (3.85-5.65) 08/13/24 03:34 Hgb 15.20 g/dL (11.27-16.99) 08/13/24 03:34 Hct 44.4 % (37-53) 08/13/24 03:34 MCV 92.3 fl (82-101) 08/13/24 03:34 MCH 31.6 pg (27-33) 08/13/24 03:34 MCHC 34.2 g/dL (30-55) 08/13/24 03:34 RDW 13.2 % (12.1-15.1) 08/13/24 03:34 Plt Count 243 10^3/cmm (157-399) 08/13/24 03:34 MPV 8.5 fL (7.4-10.4) 08/13/24 03:34 Neut % (Auto) 63.9 % 08/13/24 03:34 Lymph % (Auto) 23.6 % 08/13/24 03:34 Kay % (Auto) 11.0 % 08/13/24 03:34 Eos % (Auto) 0.7 % 08/13/24 03:34 Baso % (Auto) 0.6 % 08/13/24 03:34 Neut # (Auto) 5.78 10^3/uL (1.8-7.7) 08/13/24 03:34 Lymph # (Auto) 2.1 10^3/uL (0.8-4.8) 08/13/24 03:34 Kay # (Auto) 1.0 10^3/uL (0.2-0.9) H 08/13/24 03:34 Eos # (Auto) 0.1 10^3/uL (0.0-0.8) 08/13/24 03:34 Baso # (Auto) 0.1 10^3/uL (0.0-0.1) 08/13/24 03:34 Nucleated RBC % (auto) 0 % 08/13/24 03:34 Nucleated RBCs # 0.0 /100WBC 08/13/24 03:34 APTT 28.5 SECONDS (23.9-36.7) D 08/12/24 15:56 Sodium 142 mmol/L (136-145) 08/13/24 03:34 Potassium 4.1 mmol/L (3.5-5.1) 08/13/24 03:34 Chloride 105 mmol/L (98-107) 08/13/24 03:34 Carbon Dioxide 26 mmol/L (22-29) 08/13/24 03:34 Anion Gap 15.1 (5-19) 08/13/24 03:34 BUN 11 mg/dL (8-23) 08/13/24 03:34 Creatinine 0.8 mg/dL (0.7-1.2) 08/13/24 03:34 GFR Calculation 98.0 mL/min (90-130) 08/13/24 03:34 Glucose 136 mg/dL (65-115) H 08/13/24 03:34 Calculated Osmolality 295 mOsm/kg (285-295) 08/13/24 03:34 Calcium 8.7 mg/dL (8.5-10.5) 08/13/24 03:34 Procedures Performed Total occlusion of the right common iliac/external iliac artery status post successful revascularization with 2 stents. At distal edge of stent there is non-flow limiting dissection, will be treated medically. SFA left external iliac artery stenosis status post successful revascularization with 1 stent. Vitals Last Vital Signs Temp 99 F 08/13/24 00:00 Pulse 70 08/13/24 08:01 Resp 20 H 08/13/24 05:00 BP 127/90 08/13/24 08:20 Pulse Ox 94 08/13/24 08:01 O2 Del Method Room Air 08/13/24 08:01 Discharge Plan Discharge Patient Disposition: Home Prescriptions: New clopidogrel [Plavix] 75 mg tablet 75 mg PO DAILY Qty: 90 3RF Continued allopurinol 100 mg tablet 100 mg PO DAILY losartan 50 mg tablet 50 mg PO DAILY amlodipine 5 mg tablet 5 mg PO BEDTIME trazodone 100 mg tablet 100 mg PO BEDTIME paroxetine HCl 40 mg tablet 40 mg PO DAILY atorvastatin 40 mg Tablet 80 mg PO DAILY Qty: 90 0RF aspirin 81 mg Tablet,Delayed Release (Dr/Ec) 81 mg PO DAILY Qty: 90 0RF Discontinued clopidogrel [Plavix] 75 mg tablet 75 mg PO QDAY Qty: 30 5RF Discharge Orders: Discharge Order (Routine); Ordered 08/13/24 Ordered By: Alize Swanson Referrals: Gianfranco Blankenship M.D [Physician] - 08/26/24 1:30 pm ([facility] that patient had a pre existing appointment with Dr Blankenship on 08/26/2024 at 1330.They stated to just have them follow up with that appointment. ) Diet: Advance as tolerated and Regular Patient Instructions: Clopidogrel (By mouth) (Plavix), Peripheral Vascular Stent Placement (DC), Peripheral Vascular Angioplasty (DC) Activity Restrictions/Additional Instructions: Discussed with patient no heavy lifting more than a gallon of milk as well as going up or down steps for 3 days. No driving for 3 days. Monitor for and report signs or symptoms of bleeding. Monitor for and report s/s of infection such as fever 101 or greater, swelling, redness or pain to the groin. Dual antiplatelet therapy with aspirin and plavix High intensity statin therapy F/U in 1 week in the clinic Print Language: [place] Discharge Date/Time: 08/13/24 09:56 Discharge Attestations Time Spent in Discharge Care*: less than 30 min Quality Metrics Clinical Quality Measures [ No reported AMI, CVA or VTE this stay] Coding Level of Care Code Acute Code for [facility] [place]
== END 2024-08-13 09:56 | disposition home or self-care (01) ==
LOC: CCL 09:13 → ICU 14:20
PROVIDERS: Nurse Practitioner Family; PCP Family Medicine; Visit Provider Internal Medicine
DX: I70.213 Atherosclerosis of native arteries of extremities with intermittent claudication, bilateral legs (principal); I74.5 Embolism and thrombosis of iliac artery; I10 Essential (primary) hypertension; E66.9 Obesity, unspecified; Z68.1 Body mass index [BMI] 19.9 or less, adult; Z86.73 Personal history of transient ischemic attack (TIA), and cerebral infarction without residual deficits; Z82.49 Family history of ischemic heart disease and other diseases of the circulatory system; F17.210 Nicotine dependence, cigarettes, uncomplicated
CPT/HCPCS: 36415; 37221; 37223; 51702; 75625; 75716; 80048; 85025; 85347; 85730; 92978; 96374; 99152; 99153; C1725; C1753; C1769; C1876; C1887; C1894; J0360; J1644; J2250; J3010; J3490; J7030; J9999; Q0163; Q9967

== ENCOUNTER → 2024-08-22 14:56 | Outpatient (BNVA) | payer MEDICARE, SELFPAY | PROVIDERS: PCP Family Medicine; Visit Provider Nurse Practitioner Family | DX: I73.9 Peripheral vascular disease, unspecified (principal); Z09 Encounter for follow-up examination after completed treatment for conditions other than malignant neoplasm; I10 Essential (primary) hypertension; Z79.01 Long term (current) use of anticoagulants; Z79.82 Long term (current) use of aspirin; M54.30 Sciatica, unspecified side; Z95.5 Presence of coronary angioplasty implant and graft; F17.210 Nicotine dependence, cigarettes, uncomplicated; Z86.73 Personal history of transient ischemic attack (TIA), and cerebral infarction without residual deficits | CPT/HCPCS: 36415; 80048; 99214 ==